=== PATIENT | female | born 1955 | race Caucasian/White ===

== ENCOUNTER 2016-08-19 17:17 | Emergency (ER) | payer OTHER ==
[2016-08-19] MEDS ORDERED: Zofran 4 MG/2 ML VIAL IV ONE (18:55)
--- NOTE | 2016-08-19 18:57 | ERPHSYRPT ---
- History of Present Illness Time Seen by Provider: 08/19/16 18:45 Source: patient Exam Limitations: clinical condition Patient Subjective Stated Complaint: HEADACHE FOR THREE DAYS. HX MIGRAINES. Triage Nursing Assessment: AMBULATED TO ROOM PER SELF WITHOUT DIFFICULTY. HOLDING FOREHEAD. SKIN W/D, COLOR NORMAL. Physician History: PATIENT WITH HISTORY OF MIGRAINES SINCE AGE 10 COMPLAINS OF HEADACHE OVER THE PAST 3 DAYS, DENIES FEVER, NECK STIFFNESS, BLURRED VISION, NAUSEA OR EMESIS. Timing/Duration: day(s) Quality: throbbing Head Pain Location: frontal Severity of Pain-Max: severe Severity of Pain-Current: severe Recent Head Trauma: frequent headaches Modifying Factors: Improves With: exposure to light Associated Symptoms: sensitive to light, other (EARACHES) Allergies/Adverse Reactions: hydromorphone HCl [From Dilaudid] Allergy (Severe, Verified 08/19/16 17:54) Vomiting morphine Allergy (Severe, Verified 08/19/16 17:54) Vomiting promethazine HCl [From Phenergan] Allergy (Severe, Verified 08/19/16 17:54) Lightheadedness Home Medications: Carvedilol 6.25 mg [Coreg 6.25 MG] 6.25 mg PO BID 09/27/15 [History] Divalproex Sodium [Depakote] 1,000 mg PO DAILY 09/27/15 [History] Duloxetine HCl [Cymbalta] 60 mg PO DAILY 08/19/16 [History] Ketorolac Tromethamine [Toradol] 10 mg PO Q8HPRN PRN 08/19/16 [History] Sumatriptan Succinate [Imitrex] 100 mg PO UD 08/19/16 [History] Hx Tetanus, Diphtheria Vaccination/Date Given: No Hx Influenza Vaccination/Date Given: Yes Hx Pneumococcal Vaccination/Date Given: No - Review of Systems Constitutional: No Fever, No Chills Eyes: No Symptoms Ears, Nose, & Throat: Ear Pain Respiratory: No Cough, No Dyspnea Cardiac: No Symptoms, No Chest Pain, No Edema, No Syncope Abdominal/Gastrointestinal: No Symptoms, No Abdominal Pain, No Nausea, No Vomiting, No Diarrhea Genitourinary Symptoms: No Dysuria Musculoskeletal: No Back Pain, No Neck Pain Skin: No Rash Neurological: Headache, No Dizziness, No Focal Weakness, No Sensory Changes Psychological: No Symptoms Endocrine: No Symptoms All Other Systems: Reviewed and Negative - Past Medical History Pertinent Past Medical History: Yes Neurological History: Migraines Cardiac History: Hypertension History: Other Psycho-Social History: Depression - Past Surgical History Past Surgical History: Yes Gastrointestinal: Cholecystectomy - Social History Smoking Status: Current every day smoker How long have you smoked: 20 Exposure to second hand smoke: Yes Drug Use: none Patient Lives Alone: No - Nursing Vital Signs Nursing Vital Signs: Initial Vital Signs Temperature 98.5 F Pulse Rate 66 Respiratory Rate 16 Blood Pressure [Right Arm] 144/70 Pain Intensity 3 - Physical Exam General Appearance: mild distress Eye Exam: PERRL/EOMI Ears, Nose, Throat Exam: normal ENT inspection, moist mucous membranes Neck Exam: normal inspection, supple, full range of motion, No meningismus Respiratory Exam: normal breath sounds, lungs clear Cardiovascular Exam: regular rate/rhythm, normal heart sounds Gastrointestinal/Abdominal Exam: soft, normal bowel sounds, No tenderness, No distention Back Exam: normal inspection, normal range of motion Mental Status Exam: alert, oriented x 3, 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 Exam: normal speech, PERRL, No facial droop Coordination/Gait Exam: normal cerebellar function Motor/Sensory Exam: no motor deficit, no sensory deficit DTR Exam: bicep (R): 2+, bicep (L): 2+, tricep (R): 2+, tricep (L): 2+, knee (R) : 2+, knee (L): 2+, ankle (R): 2+, ankle (L): 2+ Skin Exam: normal color, warm, dry, No rash SpO2 Interpretation: normal SpO2: 98 Oxygen Delivery: Room Air - CT Exams Head CT Interpretation: Tele-radiologist Report, No/Intracranial Hemorrhag Ordered Tests: Active Orders 24 hr Category Date Time Status HEAD WITHOUT CONTRAST [CT] Stat Exams 08/19/16 18:56 Taken Medication Summary Generic Name Dose Route Start Last Admin Trade Name Freq PRN Reason Stop Dose Admin Sodium Chloride 1,000 mls @ 200 mls/hr 08/19/16 19:00 08/19/16 19:46 Sodium Chloride 0.9% 1000 Ml IV 09/18/16 18:59 200 mls/hr .Q5H BRANDON Administration Discontinued Medications Generic Name Dose Route Start Last Admin Trade Name Freq PRN Reason Stop Dose Admin Fentanyl Citrate 100 mcg 08/19/16 19:20 08/19/16 19:57 Sublimaze 100 Mcg/2 Ml IV 08/19/16 19:21 100 mcg STAT ONE Administration Fentanyl Citrate Confirm 08/19/16 19:56 Sublimaze 100 Mcg/2 Ml Administered 08/19/16 19:57 Dose 100 mcg .ROUTE .STK-MED ONE Fentanyl Citrate 100 mcg 08/19/16 20:44 08/19/16 21:17 Sublimaze 100 Mcg/2 Ml IV 08/19/16 20:45 100 mcg STAT ONE Administration Fentanyl Citrate Confirm 08/19/16 21:04 Sublimaze 100 Mcg/2 Ml Administered 08/19/16 21:05 Dose 100 mcg .ROUTE .STK-MED ONE Ketorolac Tromethamine 20 mg 08/19/16 20:43 08/19/16 21:14 Toradol 30 Mg Injection IV 08/19/16 20:44 20 mg STAT ONE Administration Ketorolac Tromethamine Confirm 08/19/16 21:04 Toradol 30 Mg Injection Administered 08/19/16 21:05 Dose 30 mg .ROUTE .STK-MED ONE Ondansetron HCl 4 mg 08/19/16 18:55 08/19/16 19:47 Zofran 4 Mg/2 Ml Vial IV 08/19/16 18:56 4 mg STAT ONE Administration Ondansetron HCl Confirm 08/19/16 19:06 Zofran 4 Mg/2 Ml Vial Administered 08/19/16 19:07 Dose 4 mg .ROUTE .STK-MED ONE - Progress Progress: improved Progress Note: 08/19/16 19:27 PATIENT GIVEN IV NORMAL SALINE 200ML/HR, ZOFRAN 4MG, FENTANYL 0.1MG X 2 DOSES Counseled pt/family regarding: diagnosis, need for follow-up, rad results - Departure Time of Disposition: 21:45 Departure Disposition: Home Clinical Impression: CHRONIC CEPHALGIA Condition: Stable Critical Care Time: No Instructions: Headache Additional Instructions: CONTINUE ALL CURRENT MEDICATIONS DIRECTED. FOLLOWUP WITH YOUR NEUROLOGIST TOMORROW TO SCHEDULE APPOINTMENT.
[2016-08-19] MEDS ORDERED: Sodium Chloride 0.9% 1000 ML 1,000 ML IV SCH (19:00)
[2016-08-19] MEDS ORDERED: Zofran 4 MG/2 ML VIAL ONE (19:06)
[2016-08-19] MEDS ORDERED: Sodium Chloride 0.9% 1000 ML 1,000 ML ONE (19:06)
[2016-08-19] MEDS ORDERED: SUBLIMAZE 100 MCG/2 ML IV ONE ×2 (19:20→20:44)
[2016-08-19] MEDS ORDERED: SUBLIMAZE 100 MCG/2 ML ONE ×2 (19:56→21:04)
[2016-08-19] MEDS ORDERED: TORAdol 30 mg Injection IV ONE (20:43)
[2016-08-19] MEDS ORDERED: Sodium Chloride 0.9% 1000 ML 0 ML ONE (21:04)
[2016-08-19] MEDS ORDERED: TORAdol 30 mg Injection ONE (21:04)
[2016-08-19 21:34] VITALS: PULSE 66
[2016-08-19 22:03] VITALS: BP 139/74; O2SAT 96
--- NOTE | 2016-08-20 08:50 | XRAY ---
Indication: Headache. History of hypertension and migraines. Multiple contiguous axial images obtained through the head without contrast. Comparison: None. Normal appearing brain parenchyma, ventricles, and bony calvarium. Mild mucosal thickening of both ethmoid and left sphenoid sinuses. Mastoid air cells are pneumatized and clear. Impression: Normal CT head without contrast exam. Incidental paranasal sinus disease. Comment: Preliminary interpretation was made by [facility]. No discrepancy. CTDI 68.15
== END 2016-08-19 22:04 | disposition home or self-care (01) ==
LOC: ED 17:17
DX: R51 Headache (principal); G89.29 Other chronic pain; Z79.899 Other long term (current) drug therapy
CPT/HCPCS: 70450; 96360; 96361; 96374; 96375; 96376; 99284; J1885; J2405; J3010

== ENCOUNTER 2016-08-30 20:20 | Observation (INO) | payer OTHER ==
[2016-08-30] MEDS ORDERED: BABY ASPIRIN 81 MG CHEW PO ONE (20:42)
[2016-08-30] MEDS ORDERED: NITRO-BID 2% UD PACKETS TOP ONE (20:42)
[2016-08-30] MEDS ORDERED: ATARAX 25 MG PO ONE (20:43)
[2016-08-30] MEDS ORDERED: Sodium Chloride 0.9% 1000 ML 1,000 ML IV SCH (20:45)
[2016-08-30] MEDS ORDERED: BABY ASPIRIN 81 MG CHEW ONE (20:47)
[2016-08-30] MEDS ORDERED: Sodium Chloride 0.9% 1000 ML 1,000 ML ONE (20:48)
[2016-08-30] MEDS ORDERED: NITRO-BID 2% UD PACKETS ONE (20:48)
[2016-08-30] MEDS ORDERED: ATARAX 25 MG ONE (20:50)
[2016-08-30 21:03] LABS: Mean Corpuscular Hemoglobin 28.4 pg (26-32); Mean Platelet Volume 11.4 fl (6-9.5); Platelet Count 184 K/mm3 (150-450); Red Blood Count 4.72 M/mm3 (4.1-5.4); Red Cell Distribution Width 14.4 % (11.5-14.0); White Blood Count 5.8 K/mm3 (4.0-10.5)
[2016-08-30 21:24] LABS: ALBUMIN 3.4 g/dL (3.4-5.0); ALKALINE PHOSPHATASE 75 U/L (46-116); ANION GAP 14.8 MEQ/L (5-15); BILIRUBIN,TOTAL 0.5 mg/dL (0.2-1.0); BLOOD UREA NITROGEN 8 mg/dL (9-20); CHLORIDE 104 mEq/L (98-107); Carbon Dioxide 25.4 mEq/L (21-32); Glucose 99 MG/DL (70-110); Potassium 3.9 mEq/L (3.5-5.1); SGOT/AST 10 U/L (15-37); SGPT/ALT 13 U/L (12-78); SODIUM 140 mEq/L (136-145); Total Protein 6.9 gm/dL (6.4-8.2)
--- NOTE | 2016-08-30 21:34 | ERPHSYRPT ---
- History of Present Illness Time Seen by Provider: 08/30/16 20:38 Historian: patient, family Patient Subjective Stated Complaint: Pt sts left sided chest pain x 1 month, sts pain in between shoulder blades with cold sweats and nausea intermittently x [address] Boston, has not seen him for his. Denies cardiac hx. Sts pain right now 4/10, sts at times pain 6/10. Sts pain is sharp in nature. Sts intermittent radiation to arms and back. Sts pain does not change with movement, deep inspiration. Triage Nursing Assessment: Pt alert, oriented, answers all questions appropriately. Skin p/w/d, resps non-labored. Pt ambulatory without difficulty, steady gait noted. Lung sounds CTA bilat, non-labored. ABD SNT x 4 quadrants, + bowel sounds noted. Monitor - sinus rhythm. Physician History: CC: chest pain Hx: 61 y/o patient of Dr Boston. She has no hx of heart disease but does have HTN. She reports chest pain, constant and precordial for the past month. Episodes where pain is in neck and left arm and associated with sweating and nausea. She told her daughter today and came to ER. Pain has been worse. Has not noticed an exertional component. Not short of breath. No cough, fever, or chills. Timing/Duration: week(s) (few), constant, worse (intermittently) Prior Chest Pain/Cardiac Workup: no prior chest pain, no prior cardiac workup Nitro Today/Relief: no nitro taken today Aspirin Treatment Today: 81 mg x 1, provided at home Allergies/Adverse Reactions: promethazine HCl [From Phenergan] Allergy (Severe, Verified 08/30/16 20:34) Lightheadedness hydromorphone HCl [From Dilaudid] Adverse Reaction (Severe, Verified 08/30/16 20 :34) Vomiting morphine Adverse Reaction (Severe, Verified 08/30/16 20:34) Vomiting Home Medications: Carvedilol 6.25 mg [Coreg 6.25 MG] 6.25 mg PO BID 09/27/15 [History] Divalproex Sodium [Depakote] 1,000 mg PO DAILY 09/27/15 [History] Duloxetine HCl [Cymbalta] 60 mg PO DAILY 08/19/16 [History] Ketorolac Tromethamine [Toradol] 10 mg PO Q8HPRN PRN 08/19/16 [History] Sumatriptan Succinate [Imitrex] 100 mg PO UD 08/19/16 [History] Aspirin 81 gm Chew [Baby Aspirin 81 mg Chew] 81 mg PO PRN 08/30/16 [ History] Cyclobenzaprine HCl [Flexeril] 5 mg PO 08/30/16 [History] Fluticasone Propionate [Flonase Allergy Relief] 15.8 ml NS DAILY 08/30/16 [ History] Pravastatin Sodium 0 mg PO 08/30/16 [History] Hx Tetanus, Diphtheria Vaccination/Date Given: No Hx Influenza Vaccination/Date Given: Yes Hx Pneumococcal Vaccination/Date Given: No Immunizations Up to Date: Yes - Review of Systems Constitutional: Malaise, No Fever, No Chills Eyes: No Symptoms Ears, Nose, & Throat: No Symptoms Respiratory: No Cough, No Dyspnea Cardiac: Chest Pain, No Edema, No Palpitations Abdominal/Gastrointestinal: Nausea (intermittent), No Abdominal Pain Genitourinary Symptoms: No Symptoms Musculoskeletal: No Symptoms Skin: No Symptoms Neurological: No Symptoms Psychological: Anxiety (with some panic attacks which may contributing) All Other Systems: Reviewed and Negative - Past Medical History Pertinent Past Medical History: Yes Neurological History: Migraines Cardiac History: High Cholesterol, Hypertension History: Other Psycho-Social History: Depression, Panic Disorder Other Medical History: seasonal allergies - Past Surgical History Past Surgical History: Yes Gastrointestinal: Cholecystectomy Other Surgical History: hyst, rotator cuff, kidney stones - stents (Dr. 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) - Nursing Vital Signs Temperature: 97.7 F Temperature Source: Oral Pulse Rate: 60 Respiratory Rate: 17 Pain Intensity: 2 - Physical Exam General Appearance: alert Eye Exam: PERRL/EOMI Ears, Nose, Throat Exam: normal ENT inspection, moist mucous membranes Neck Exam: normal inspection, non-tender, supple Respiratory Exam: normal breath sounds, lungs clear Cardiovascular Exam: regular rate/rhythm, No murmur, No friction rub Gastrointestinal/Abdomen Exam: soft, No tenderness, No distention Extremity Exam: normal inspection, normal range of motion, No calf tenderness, No pedal edema Neurologic Exam: alert, oriented x 3, cooperative, sensation nml, No motor deficits Skin Exam: warm, dry, No rash SpO2 Interpretation: normal SpO2: 97 Oxygen Delivery: Room Air - Course Nursing assessment & vital signs reviewed: Yes EKG Interpreted by Me: RATE (65), Sinus Rhythm, NORMAL AXIS, NORMAL INTERVALS ( QTc 418), NORMAL QRS, NORMAL ST-T - Radiology Exams cxr X-ray Interpretation: Reviewed by me, Negative Ordered Tests: Active Orders 24 hr Category Date Time Status 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 Care 08/30/16 20:42 Active EKG-ER Only STAT Care 08/30/16 20:42 Active IV Insertion STAT Care 08/30/16 20:42 Active Pulse Oximetry (ED) STAT Care 08/30/16 20:42 Active CHEST 1 VIEW (PORTABLE) Stat Exams 08/30/16 20:43 Taken CBC W DIFF Stat Lab 08/30/16 20:40 Completed CMP Stat Lab 08/30/16 20:40 Completed Manual Differential NC Stat Lab 08/30/16 20:40 Completed TROPONIN Q3H Lab 08/30/16 20:40 Completed TROPONIN Q3H Lab 08/30/16 23:45 Ordered TROPONIN Q3H Lab 08/31/16 02:45 Ordered TROPONIN Q3H Lab 08/31/16 05:45 Ordered TROPONIN Q3H Lab 08/31/16 08:45 Ordered VALPROIC ACID (DEPAKOTE) Stat Lab 08/30/16 20:50 Received Medication Summary Generic Name Dose Route Start Last Admin Trade Name Freq PRN Reason Stop Dose Admin Sodium Chloride 1,000 mls @ 50 mls/hr 08/30/16 20:45 08/30/16 20:52 Sodium Chloride 0.9% 1000 Ml IV 09/29/16 20:44 50 mls/hr .Q20H BRANDON Administration Discontinued Medications Generic Name Dose Route Start Last Admin Trade Name Freq PRN Reason Stop Dose Admin Aspirin 162 mg 08/30/16 20:42 08/30/16 20:52 Baby Aspirin 81 Mg Chew PO 08/30/16 20:43 162 mg STAT ONE Administration Aspirin Confirm 08/30/16 20:47 Baby Aspirin 81 Mg Chew Administered 08/30/16 20:48 Dose 162 mg .ROUTE .STK-MED ONE Famotidine 20 mg 08/30/16 21:41 Pepcid 20 Mg Vial IV 08/30/16 21:42 STAT ONE Hydroxyzine HCl 50 mg 08/30/16 20:43 08/30/16 20:53 Atarax 25 Mg PO 08/30/16 20:44 50 mg STAT ONE Administration Hydroxyzine HCl Confirm 08/30/16 20:50 Atarax 25 Mg Administered 08/30/16 20:51 Dose 50 mg .ROUTE .STK-MED ONE Nitroglycerin 1 gm 08/30/16 20:42 08/30/16 20:53 Nitro-Bid 2% Ud Packets TOP 08/30/16 20:43 1 gm STAT ONE Administration Nitroglycerin Confirm 08/30/16 20:48 Nitro-Bid 2% Ud Packets Administered 08/30/16 20:49 Dose 1 gm .ROUTE .STK-MED ONE Lab/Rad Data: Laboratory Result Diagrams 08/30/16 20:40 08/30/16 20:40 Laboratory Results 08/30/16 08/30/16 08/30/16 Range/Units 20:40 20:40 20:40 WBC 5.8 (4.0-10.5) K/mm3 RBC 4.72 (4.1-5.4) M/mm3 Hgb 13.4 (12.0-16.0) gm/dl Hct 40.6 (35-47) % MCV 86.0 (78-100) fl MCH 28.4 (26-32) pg MCHC 33.0 (32-36) g/dl RDW 14.4 H (11.5-14.0) % Plt Count 184 (150-450) K/mm3 MPV 11.4 H (6-9.5) fl Sodium 140 (136-145) mEq/L Potassium 3.9 (3.5-5.1) mEq/L Chloride 104 (98-107) mEq/L Carbon Dioxide 25.4 (21-32) mEq/L Anion Gap 14.8 (5-15) MEQ/L BUN 8 L (9-20) mg/dL Creatinine 0.67 (0.55-1.30) mg/dl Estimated GFR > 60 ML/MIN Glucose 99 (70-110) MG/DL Calcium 8.5 (8.5-10.1) mg/dL Total Bilirubin 0.5 (0.2-1.0) mg/dL AST 10 L (15-37) U/L ALT 13 (12-78) U/L Alkaline Phosphatase 75 (46-116) U/L Troponin I < 0.017 (0.000-0.056) ng/ml Serum Total Protein 6.9 (6.4-8.2) gm/dL Albumin 3.4 (3.4-5.0) g/dL - Progress Progress Note: 08/30/16 21:45 NTG has helped pain some but pain is still present. EKG and troponin neg. Called Dr Boston who will place in chest pain obs. Discussed with .: Luz Marina Will see patient in: hospital (observation) Counseled pt/family regarding: lab results, diagnosis, need for follow-up, rad results - Departure Time of Disposition: 21:46 Departure Disposition: Observation Clinical Impression: Chest pain, rule out acute myocardial infarction Condition: Stable Critical Care Time: No Referrals: SHAHZAD BOSTON MD [Primary Care Provider] -
[2016-08-30] MEDS ORDERED: Pepcid 20 MG VIAL IV ONE ×2 (21:41→21:54)
[2016-08-30] MEDS ORDERED: Zofran 4 MG/2 ML VIAL IV PRN (22:16)
[2016-08-30] MEDS ORDERED: MAALOX ES 30 ML UNIT DOSE PO PRN (22:16)
[2016-08-30] MEDS ORDERED: Senokot-S Tablet PO PRN (22:16)
[2016-08-30] MEDS ORDERED: MILK OF MAGNESIA 30 ML PO PRN (22:16)
[2016-08-30] MEDS ORDERED: Sodium Chloride 0.9% 500 ML 500 ML IV SCH (22:16)
[2016-08-30] MEDS ORDERED: TYLENOL 325 MG PO PRN (22:16)
[2016-08-30 23:09] LABS: Eosinophil 2 % (0.00-3.0); Platelet Estimate NORMAL (NORMAL); Total Cells Counted 100
[2016-08-31] MEDS: NITRO-BID 2% UD PACKETS TOP SCH ×2 (00:29→05:42)
[2016-08-31] MEDS: Pepcid 20 MG PO SCH ×2 (00:30→09:01)
--- NOTE | 2016-08-31 08:38 | XRAY ---
Indication: Chest pain. Comparison: April 08, 2011. Portable chest less inflated today with subtle bibasilar opacities probably atelectasis. Underlying infiltrate not excluded in the right clinical setting. Remaining heart, lungs, and bony thorax normal.
[2016-08-31] MEDS ORDERED: MOTRIN 200 MG PO PRN (09:26)
[2016-08-31] MEDS ORDERED: NON-FORMULARY ITEM (Cyclobenzaprine Hcl [Flexeril] 10 MG) PO PRN (09:26)
[2016-08-31] MEDS ORDERED: TORAdol 10 MG TABLET PO PRN (09:26)
[2016-08-31] MEDS ORDERED: MOTRIN 400 MG PO PRN (09:29)
[2016-08-31] MEDS ORDERED: Cyclobenzaprine 10 MG PO PRN (09:30)
[2016-08-31] MEDS ORDERED: NON-FORMULARY ITEM (Sumatriptan Succinate [Imitrex] 100 MG) PO SCH (09:30)
[2016-08-31] MEDS ORDERED: MEDICATION INTERVENTION MC PRN (09:35)
[2016-08-31] MEDS ORDERED: Cymbalta 30 MG Capsule PO SCH (10:00)
[2016-08-31] MEDS ORDERED: Ecotrin 325 MG PO SCH (10:00)
[2016-08-31] MEDS ORDERED: [UNRECOGNIZED DRUG - REMARK] NS SCH (10:00)
[2016-08-31] MEDS ORDERED: Coreg 6.25 MG PO SCH (10:00)
[2016-08-31] MEDS ORDERED: BABY ASPIRIN 81 MG CHEW PO SCH (10:00)
[2016-08-31] MEDS ORDERED: Flonase NASAL NS SCH (10:00)
[2016-08-31] MEDS ORDERED: NON-FORMULARY ITEM (Pravastatin Sodium [Pravastatin Sodium] 20 MG) PO SCH (10:00)
[2016-08-31] MEDS ORDERED: NON-FORMULARY ITEM (Duloxetine Hcl [Cymbalta] 60 MG) PO SCH (10:00)
[2016-08-31] MEDS: ECOTRIN 81 MG PO SCH (10:49)
[2016-08-31 11:15] VITALS: BP 111/56; PULSE 62; O2SAT 92
--- NOTE | 2016-08-31 11:41 | PCM.SSS ---
History of Present Illness - Chief Complaint Chief Complaint: chest pain for 1-2 days History of Present Illness: is a 61 year old female.patient She has no hx of heart disease but does have HTN. She reports chest pain, constant and precordial for the past month. Episodes where pain is in neck and left arm and associated with sweating and nausea. She told her daughter today and came to ER. Pain has been worse. Has not noticed an exertional component. Not short of breath. No cough, fever, or chills. - Review of Systems Constitutional: No Fever, No Chills Eyes: No Symptoms Ears, Nose, & Throat: No Symptoms Respiratory: No Cough, No Short Of Breath Cardiac: Chest Pain, No Edema, No Syncope Abdominal/Gastrointestinal: No Abdominal Pain, No Nausea, No Vomiting, No Diarrhea Genitourinary Symptoms: No Dysuria Musculoskeletal: No Back Pain, No Neck Pain Skin: No Rash Neurological: No Dizziness, No Focal Weakness, No Sensory Changes Psychological: No Symptoms Endocrine: No Symptoms Hematologic/Lymphatic: No Symptoms Immunological/Allergic: No Symptoms Medications & Allergies Home Medications: Home Medication List Carvedilol 6.25 mg [Coreg 6.25 MG] 6.25 mg PO DAILY 09/27/15 [History Confirmed 08/30/16] Divalproex Sodium [Depakote] 1,000 mg PO DAILY 09/27/15 [History Confirmed 08/30] Duloxetine HCl [Cymbalta] 60 mg PO DAILY 08/19/16 [History Confirmed 08/30/16] Ketorolac Tromethamine [Toradol] 10 mg PO Q8HPRN PRN 08/19/16 [History Confirmed 08/30/16] Sumatriptan Succinate [Imitrex] 100 mg PO UD 08/19/16 [History Confirmed ] Aspirin 81 gm Chew [Baby Aspirin 81 mg Chew] 81 mg PO DAILY 08/30/16 [ History Confirmed 08/30/16] Cyclobenzaprine HCl [Flexeril] 10 mg PO TID PRN PRN 08/30/16 [History Confirmed 08/30/16] Fluticasone Propionate [Flonase Allergy Relief] 15.8 ml NS DAILY 08/30/16 [ History Confirmed 08/30/16] Ibuprofen 200 mg [Motrin 200 mg] 800 mg PO BID PRN 08/30/16 [History Confirmed 08/30/16] Pravastatin Sodium 20 mg PO DAILY 08/30/16 [History Confirmed 08/30/16] Allergies/Adverse Reactions: Allergies Allergy/AdvReac Type Severity Reaction Status Date / Time promethazine HCl Allergy Severe Lightheaded Verified 08/30/16 20:34 [From Phenergan] ness hydromorphone HCl AdvReac Severe Vomiting Verified 08/30/16 20:34 [From Dilaudid] morphine AdvReac Severe Vomiting Verified 08/30/16 20:34 - Past Medical History Past Medical History: Yes Neurological History: Migraines Cardiac History: High Cholesterol, Hypertension History: Other Pyscho-Social History: Depression, Panic Disorder Comment: seasonal allergies, kidney stones - Female History Are you now?: No - Past Surgical History Past Surgical History: Yes GI Surgical History: Cholecystectomy Genitourinary Surgical Hx: Other Musculskeletal Surgical Hx: Other Female Surgical History: Hysterectomy Other Surgical History: rotator cuff, kidney stones - stents (Dr. Rush) - Social History Smoking Status: Current every day smoker How long have you smoked: 30 yrs Exposure to second hand smoke: Yes Alcohol: None Drug Use: none - Physical Exam Vital Signs: Vital Signs - 24 hr Temp Pulse Resp BP BP Pulse Ox 08/31/16 11:15 98.0 F 62 18 111/56 92 L 08/31/16 08:00 96 08/31/16 07:23 98.0 F 66 17 123/56 96 08/31/16 04:00 98.0 F 59 L 16 100/55 91 L 08/31/16 00:00 97.9 F 64 18 117/58 94 L 08/30/16 23:11 98.1 F 60 18 133/63 93 L 08/30/16 22:01 58 L 20 146/78 97 08/30/16 21:46 97.7 F 60 17 97 08/30/16 21:23 60 17 137/52 97 08/30/16 20:47 96 08/30/16 20:35 97.7 F 67 16 127/68 97 General Appearance: no apparent distress, alert Neurologic Exam: alert, oriented x 3, cooperative, normal mood/affect, nml cerebellar function, nml station & gait, sensation nml, No motor deficits Eye Exam: PERRL/EOMI, eyes nml inspection Ears, Nose, Throat Exam: normal ENT inspection, TMs normal, pharynx normal, moist mucous membranes Neck Exam: normal inspection, non-tender, supple, full range of motion Respiratory Exam: normal breath sounds, lungs clear, No respiratory distress Cardiovascular Exam: regular rate/rhythm, normal heart sounds, normal peripheral pulses Gastrointestinal/Abdomen Exam: soft, normal bowel sounds, No tenderness, No mass Back Exam: normal inspection, normal range of motion, No CVA tenderness, No vertebral tenderness Extremity Exam: normal inspection, normal range of motion, pelvis stable Skin Exam: normal color, warm, dry, No rash Lymphatic Exam: No adenopathy Results - Labs Lab/Micro Results: Lab Results-Last 24 Hours 08/30/16 08/31/16 08/31/16 Range/Units 23:45 02:50 05:20 Troponin I < 0.017 < 0.017 < 0.017 (0.000-0.056) ng/ml Triglycerides (30-200) mg/dL Cholesterol (100-200) mg/dL LDL Cholesterol (5-99) mg/dL HDL Cholesterol (35-60) mg/dL Heart Disease Risk Ratio 08/31/16 08/31/16 Range/Units 05:20 08:48 Troponin I < 0.017 (0.000-0.056) ng/ml Triglycerides 178 (30-200) mg/dL Cholesterol 179 (100-200) mg/dL LDL Cholesterol 112 H (5-99) mg/dL HDL Cholesterol 29 L (35-60) mg/dL Heart Disease Risk Ratio 6.2 - Other Procedures and Tests Respiratory Therapy 09/01/16 05:00 EKG ROUTINE 09/02/16 05:00 EKG ROUTINE 09/03/16 05:00 EKG ROUTINE Assessment/Plan (1) Chest pain, rule out acute myocardial infarction Current Visit: Yes Status: Acute Assessment & Plan: Troponins are negative, will schedule appointment with cardiology service Dr Mary Peacock as out patient. Code(s): R07.9 - CHEST PAIN, UNSPECIFIED (2) HTN (hypertension) Current Visit: Yes Status: Chronic Qualifiers: Hypertension type: essential hypertension Qualified Code(s): I10 - Essential (primary) hypertension Code(s): I10 - ESSENTIAL (PRIMARY) HYPERTENSION Hospital Summary - Hospital Course Hospital Course: Chief Complaint Diagnosis chest pain rule out PR Allergies Allergy/AdvReac Type Severity Reaction Status Date / Time promethazine HCl Allergy Severe Lightheaded Verified 08/30/16 20:34 [From Phenergan] ness hydromorphone HCl AdvReac Severe Vomiting Verified 08/30/16 20:34 [From Dilaudid] morphine AdvReac Severe Vomiting Verified 08/30/16 20:34 Vital Signs (Last 24 hours) Temp Pulse Resp BP BP Pulse Ox 08/31/16 11:15 98.0 F 62 18 111/56 92 L 08/31/16 08:00 96 08/31/16 07:23 98.0 F 66 17 123/56 96 08/31/16 04:00 98.0 F 59 L 16 100/55 91 L 08/31/16 00:00 97.9 F 64 18 117/58 94 L 08/30/16 23:11 98.1 F 60 18 133/63 93 L 08/30/16 22:01 58 L 20 146/78 97 08/30/16 21:46 97.7 F 60 17 97 08/30/16 21:23 60 17 137/52 97 08/30/16 20:47 96 08/30/16 20:35 97.7 F 67 16 127/68 97 Home Medications Medication Instructions Recorded Confirmed Last Taken Type Aspirin 81 gm Chew [Baby 81 mg PO DAILY 08/30/16 08/30/16 08/30/16 History Aspirin 81 mg Chew] Cyclobenzaprine HCl [Flexeril] 10 mg PO TID PRN PRN 08/30/16 08/30/16 08/18/16 History Fluticasone Propionate [Flonase 15.8 ml NS DAILY 08/30/16 08/30/16 08/30/16 History Allergy Relief] Ibuprofen 200 mg [Motrin 200 800 mg PO BID PRN 08/30/16 08/30/16 08/28/16 History mg] Pravastatin Sodium 20 mg PO DAILY 08/30/16 08/30/16 08/30/16 History Current Medications Generic Name Dose Route Start Last Admin Trade Name Freq PRN Reason Stop Dose Admin Acetaminophen 650 mg 08/30/16 22:16 08/31/16 09:18 Tylenol 325 Mg PO 09/29/16 22:15 650 mg Q4H PRN PRN Administration PAIN AND/OR FEVER Al Hydrox/Mg Hydrox/Simethicone 30 ml 08/30/16 22:16 Maalox Es 30 Ml Unit Dose PO 09/29/16 22:15 Q4H PRN PRN INDIGESTION Aspirin 81 mg 08/31/16 10:00 08/31/16 10:49 Ecotrin 81 Mg PO 09/30/16 09:59 81 mg DAILY BRANDON Administration Carvedilol 6.25 mg 08/31/16 10:00 08/31/16 10:49 Coreg 6.25 Mg PO 09/30/16 09:59 6.25 mg DAILY BRANDON Administration Cyclobenzaprine HCl 10 mg 08/31/16 09:30 Cyclobenzaprine 10 Mg PO 09/30/16 09:29 TID PRN PRN HEADACHE Divalproex Sodium 1,000 mg 08/31/16 10:00 08/31/16 10:[address] 250 Mg Tab PO 09/30/16 09:59 1,000 mg DAILY BRANDON Administration Duloxetine HCl 60 mg 08/31/16 10:00 08/31/16 10:48 Cymbalta 30 Mg Capsule PO 09/30/16 09:59 60 mg DAILY BRANDON Administration Famotidine 20 mg 08/30/16 22:16 08/31/16 09:01 Pepcid 20 Mg PO 09/29/16 22:15 20 mg BID BRANDON Administration Fluticasone Propionate 0 gm 08/31/16 10:00 08/31/16 10:50 Flonase Nasal NS 09/30/16 09:59 2 gm DAILY BRANDON Administration Sodium Chloride 500 mls @ 20 mls/hr 08/30/16 22:16 08/30/16 22:30 Sodium Chloride 0.9% 500 Ml IV 09/29/16 22:15 20 mls/hr .Q24H BRANDON Administration Ibuprofen 800 mg 08/31/16 09:29 Motrin 400 Mg PO 09/30/16 09:28 BID PRN PRN migraines Ketorolac Tromethamine 10 mg 08/31/16 09:26 Toradol 10 Mg Tablet PO 09/05/16 09:25 Q8HPRN PRN PAIN Magnesium Hydroxide 30 - 60 ml 08/30/16 22:16 Milk Of Magnesia 30 Ml PO 09/29/16 22:15 QDP PRN CONSTIPATION Nitroglycerin 1 gm 08/30/16 22:16 08/31/16 05:42 Nitro-Bid 2% Ud Packets TOP 09/29/16 22:15 1 gm Q8HT BRANDON Administration Ondansetron HCl 4 mg 08/30/16 22:16 Zofran 4 Mg/2 Ml Vial IV 09/29/16 22:15 Q4H PRN PRN NAUSEA/VOMITING Senna/Docusate Sodium 2 udtab 08/30/16 22:16 Senokot-S Tablet PO 09/29/16 22:15 BID PRN PRN CONSTIPATION Simvastatin 20 mg 08/31/16 22:00 Zocor 20mg PO 09/30/16 21:59 HS [facility] Discontinued Medications Generic Name Dose Route Start Last Admin Trade Name Freq PRN Reason Stop Dose Admin Aspirin 162 mg 08/30/16 20:42 08/30/16 20:52 Baby Aspirin 81 Mg Chew PO 08/30/16 20:43 162 mg STAT ONE Administration Aspirin Confirm 08/30/16 20:47 Baby Aspirin 81 Mg Chew Administered 08/30/16 20:48 Dose 162 mg .ROUTE .STK-MED ONE Aspirin 325 mg 08/31/16 10:00 Ecotrin 325 Mg PO 09/30/16 09:59 DAILY [facility] Famotidine 20 mg 08/30/16 21:41 08/30/16 21:55 Pepcid 20 Mg Vial IV 08/30/16 21:42 20 mg STAT ONE Administration Famotidine Confirm 08/30/16 21:54 Pepcid 20 Mg Vial Administered 08/30/16 21:55 Dose 20 mg IV .STK-MED ONE Hydroxyzine HCl 50 mg 08/30/16 20:43 08/30/16 20:53 Atarax 25 Mg PO 08/30/16 20:44 50 mg STAT ONE Administration Hydroxyzine HCl Confirm 08/30/16 20:50 Atarax 25 Mg Administered 08/30/16 20:51 Dose 50 mg .ROUTE .STK-MED ONE Sodium Chloride 1,000 mls @ 50 mls/hr 08/30/16 20:45 08/30/16 20:52 Sodium Chloride 0.9% 1000 Ml IV 09/29/16 20:44 50 mls/hr .Q20H BRANDON Administration Sodium Chloride Confirm 08/30/16 20:48 Sodium Chloride 0.9% 1000 Ml Administered 08/30/16 20:49 Dose 1,000 mls @ ud .ROUTE .STK-MED ONE Nitroglycerin 1 gm 08/30/16 20:42 08/30/16 20:53 Nitro-Bid 2% Ud Packets TOP 08/30/16 20:43 1 gm STAT ONE Administration Nitroglycerin Confirm 08/30/16 20:48 Nitro-Bid 2% Ud Packets Administered 08/30/16 20:49 Dose 1 gm .ROUTE .STK-MED ONE Intake & Output (Last 24 hours) 08/28/16 08/29/16 08/30/16 08/31/16 11:59 11:59 11:59 11:59 Intake Total 418 Output Total 325 Balance 93 Weight 97.522 kg Laboratory Results (Last 24 hours) 08/31/16 08/31/16 08/31/16 08:48 05:20 05:20 WBC RBC Hgb Hct MCV MCH MCHC RDW Plt Count MPV Segmented Neutrophils Lymphocytes (Manual) Monocytes (Manual) Eosinophils (Manual) Differential Comment Platelet Estimate Sodium Potassium Chloride Carbon Dioxide Anion Gap BUN Creatinine Estimated GFR Glucose Calcium Total Bilirubin AST ALT Alkaline Phosphatase Troponin I < 0.017 < 0.017 Serum Total Protein Albumin Triglycerides 178 Cholesterol 179 LDL Cholesterol 112 H HDL Cholesterol 29 L Heart Disease Risk Ratio 6.2 Valproic Acid 08/31/16 08/30/16 08/30/16 02:50 23:45 20:50 WBC RBC Hgb Hct MCV MCH MCHC RDW Plt Count MPV Segmented Neutrophils Lymphocytes (Manual) Monocytes (Manual) Eosinophils (Manual) Differential Comment Platelet Estimate Sodium Potassium Chloride Carbon Dioxide Anion Gap BUN Creatinine Estimated GFR Glucose Calcium Total Bilirubin AST ALT Alkaline Phosphatase Troponin I < 0.017 < 0.017 Serum Total Protein Albumin Triglycerides Cholesterol LDL Cholesterol HDL Cholesterol Heart Disease Risk Ratio Valproic Acid 82.4 08/30/16 08/30/16 08/30/16 20:40 20:40 20:40 WBC 5.8 RBC 4.72 Hgb 13.4 Hct 40.6 MCV 86.0 MCH 28.4 MCHC 33.0 RDW 14.4 H Plt Count 184 MPV 11.4 H Segmented Neutrophils 42 Lymphocytes (Manual) 49 H Monocytes (Manual) 7 Eosinophils (Manual) 2 Differential Comment NORMAL Platelet Estimate NORMAL Sodium 140 Potassium 3.9 Chloride 104 Carbon Dioxide 25.4 Anion Gap 14.8 BUN 8 L Creatinine 0.67 Estimated GFR > 60 Glucose 99 Calcium 8.5 Total Bilirubin 0.5 AST 10 L ALT 13 Alkaline Phosphatase 75 Troponin I < 0.017 Serum Total Protein 6.9 Albumin 3.4 Triglycerides Cholesterol LDL Cholesterol HDL Cholesterol Heart Disease Risk Ratio Valproic Acid Orders (Last 24 hours) Category Date Time Status Bedrest with BRP/BSC ROUTINE Activity 08/30/16 22:16 Active Admission/Status Order ROUTINE Care 08/30/16 22:16 Active Call Admit Doctor for Orders ROUTINE Care 08/30/16 22:16 Active Vp Publisher Development STAT Care 08/30/16 20:42 Completed Code Status Order ROUTINE Care 08/30/16 22:16 Active EKG-ER Only STAT Care 08/30/16 20:42 Completed IV Care Q6H Care 08/30/16 22:16 Active IV Insertion STAT Care 08/30/16 20:42 Completed Implement Chest Pain Pathway ROUTINE Care 08/30/16 22:16 Active Pulse Oximetry (ED) STAT Care 08/30/16 20:42 Completed Taco Delgado, Apply ROUTINE Care 08/30/16 22:16 Active Telemetry ROUTINE Care 08/30/16 22:16 Active Vital Signs Q4H Care 08/30/16 22:16 Active Weight,Daily 0600 Care 08/30/16 22:16 Active CHEST 1 VIEW (PORTABLE) Stat Exams 08/30/16 20:43 Completed CBC W DIFF Stat Lab 08/30/16 20:40 Completed CMP Stat Lab 08/30/16 20:40 Completed LIPID PROFILE AM.LAB Lab 08/31/16 05:20 Completed Manual Differential NC Stat Lab 08/30/16 20:40 Completed TROPONIN Q3H Lab 08/30/16 20:40 Completed TROPONIN Q3H Lab 08/30/16 23:45 Completed TROPONIN Q3H Lab 08/31/16 02:50 Completed TROPONIN Q3H Lab 08/31/16 05:20 Completed TROPONIN Q3H Lab 08/31/16 08:48 Completed VALPROIC ACID (DEPAKOTE) Stat Lab 08/30/16 20:50 Completed Acetaminophen 325 mg [Tylenol 325 mg] Med 08/30/16 22:16 Active 650 mg PO Q4H PRN PRN Aspirin 81 gm Chew [Baby Aspirin 81 mg Chew] Med 08/30/16 20:47 Discontinued 162 mg .ROUTE .STK-MED ONE Aspirin 81 gm Chew [Baby Aspirin 81 mg Chew] Med 08/30/16 20:42 Discontinued 162 mg PO STAT ONE Aspirin EC 325 mg [Ecotrin 325 MG] Med 08/31/16 10:00 Discontinued 325 mg PO DAILY Aspirin EC 81 mg [Ecotrin 81 mg] Med 08/31/16 10:00 Active 81 mg PO DAILY Carvedilol 6.25 mg [Coreg 6.25 MG] Med 08/31/16 10:00 Active 6.25 mg PO DAILY Cyclobenzaprine HCl 10 mg [Cyclobenzaprine 10 MG] Med 08/31/16 09:30 Active 10 mg PO TID PRN PRN Divalproex Sodium 250 mg [Divalproex DR 250 mg Tab] Med 08/31/16 10:00 Active 1,000 mg PO DAILY Duloxetine HCl 30 mg [Cymbalta 30 MG Capsule] Med 08/31/16 10:00 Active 60 mg PO DAILY Famotidine 20 mg Vial [Pepcid 20 MG VIAL] Med 08/30/16 21:54 Discontinued 20 mg IV .STK-MED ONE Famotidine 20 mg Vial [Pepcid 20 MG VIAL] Med 08/30/16 21:41 Discontinued 20 mg IV STAT ONE Famotidine 20 mg [Pepcid 20 MG] Med 08/30/16 22:16 Active 20 mg PO BID Fluticasone Propionate [Flonase NASAL] Med 08/31/16 10:00 Active 0 gm NS DAILY Hydroxyzine HCl 25 mg [Atarax 25 mg] Med 08/30/16 20:50 Discontinued 50 mg .ROUTE .STK-MED ONE Hydroxyzine HCl 25 mg [Atarax 25 mg] Med 08/30/16 20:43 Discontinued 50 mg PO STAT ONE Ibuprofen 400 mg [Motrin 400 mg] Med 08/31/16 09:29 Active 800 mg PO BID PRN PRN Ketorolac Trometh 10 mg Tab [TORAdol 10 MG TABLET] Med 08/31/16 09:26 Active 10 mg PO Q8HPRN PRN Mag Hydrox/Al Hydrox/Simeth [Maalox Es 30 ml Unit Med 08/30/16 22:16 Active Dose] 30 ml PO Q4H PRN PRN Magnesium Hydroxide 30 ml [Milk of Magnesia 30 ml Med 08/30/16 22:16 Active ] 30 - 60 ml PO QDP PRN Medication Intervention Med 08/31/16 09:35 Active 0 each MC PRN PRN NaCl 0.9% 1000 ml [Sodium Chloride 0.9% 1000 ML] 1,000 Med 08/30/16 20:45 Discontinued ml IV 50 mls/hr NaCl 0.9% 500 ml [Sodium Chloride 0.9% 500 ML] 500 ml Med 08/30/16 22:16 Active IV 20 mls/hr Nitroglycerin 2 %Ointment [Nitro-Bid 2% Ud Packets Med 08/30/16 20:48 Discontinued *] 1 gm .ROUTE .STK-MED ONE Nitroglycerin 2 %Ointment [Nitro-Bid 2% Ud Packets Med 08/30/16 22:16 Active *] 1 gm TOP Q8HT Nitroglycerin 2 %Ointment [Nitro-Bid 2% Ud Packets Med 08/30/16 20:42 Discontinued *] 1 gm TOP STAT ONE Ondansetron HCl 4 mg/2 ml [Zofran 4 MG/2 ML VIAL] Med 08/30/16 22:16 Active 4 mg IV Q4H PRN PRN Senna/Docusate Sodium Tab [Senokot-S Tablet] Med 08/30/16 22:16 Active 2 udtab PO BID PRN PRN Simvastatin 20Mg [Zocor 20Mg] Med 08/31/16 22:00 Active 20 mg PO HS EKG ROUTINE RT 08/31/16 04:28 Completed EKG ROUTINE RT 09/01/16 05:00 Active EKG ROUTINE RT 09/02/16 05:00 Active EKG ROUTINE RT 09/03/16 05:00 Active Pulse Oximetry Q4H RT 08/30/16 22:16 Active Smoking Cessation Education ONCE RT 08/30/16 23:40 Completed Transfer Order Routine Transfer 08/30/16 21:46 Completed Patient Care Notes (Last 24 hours) 08/31/16 11:20 Nursing Note by JORDANA SUAZO Patient reported to this nurse that "about 45 minutes ago" she became very nauseated and diaphoretic accompanied by a "dull" chest pain in the left upper chest which is "where it is always at when I have it." Patient states that this feeling did not last long and passed and that she "feels fine now." Patient states she has no pain at this time. Advised patient to call for nurse immediately if these symptoms happen again so that patient can be better assessed. Patient's VS are as follows T98.0, P62, RR18, 92% RA, bp 111/56. Will continue to monitor. PR ruled out will schedule patient with Dr Alarcon (Cardiology) - Vitals & Intake/Output Vital Signs: Vital Signs Temperature 98.0 F 08/31/16 11:15 Pulse Rate 62 08/31/16 11:15 Respiratory Rate 18 08/31/16 11:15 Blood Pressure 111/56 08/31/16 11:15 O2 Sat by Pulse Oximetry 92 L 08/31/16 11:15 Intake & Output: Intake & Output 08/28/16 08/29/16 08/30/16 08/31/16 11:59 11:59 11:59 11:59 Intake Total 418 Output Total 325 Balance 93 Weight 97.522 kg - Lab Result Diagrams: 08/30/16 20:40 08/30/16 20:40 Lab Results-Last 24 Hrs: Lab Results-Last 24 Hours 08/30/16 08/31/16 08/31/16 Range/Units 23:45 02:50 05:20 Troponin I < 0.017 < 0.017 < 0.017 (0.000-0.056) ng/ml Triglycerides (30-200) mg/dL Cholesterol (100-200) mg/dL LDL Cholesterol (5-99) mg/dL HDL Cholesterol (35-60) mg/dL Heart Disease Risk Ratio 08/31/16 08/31/16 Range/Units 05:20 08:48 Troponin I < 0.017 (0.000-0.056) ng/ml Triglycerides 178 (30-200) mg/dL Cholesterol 179 (100-200) mg/dL LDL Cholesterol 112 H (5-99) mg/dL HDL Cholesterol 29 L (35-60) mg/dL Heart Disease Risk Ratio 6.2 - Procedures and Test Procedures and Tests throughout Hospitalization: Therapy Orders & Screens 08/30/16 23:40 Smoking Cessation Education ONCE Comment: Diagnosis: chest pain rule out PR Smoking Status: Current every day smoker How long have you smoked: 30 yrs Have you smoked in the past 12 months: Yes Approximately how many cigarettes per day: 20 Do you dip or chew tobacco: No 08/31/16 04:28 EKG ROUTINE Comment: 09/01/16 05:00 EKG ROUTINE Comment: 09/02/16 05:00 EKG ROUTINE Comment: 09/03/16 05:00 EKG ROUTINE Comment: - Discharge Discharge Date: 08/31/16 Disposition: Home, Self-Care Condition: Stable Prescriptions: No Action Carvedilol 6.25 mg [Coreg 6.25 MG] 6.25 mg PO DAILY Divalproex Sodium [Depakote] 1,000 mg PO DAILY Sumatriptan Succinate [Imitrex] 100 mg PO UD Ketorolac Tromethamine [Toradol] 10 mg PO Q8HPRN PRN PRN Reason: Pain Duloxetine HCl [Cymbalta] 60 mg PO DAILY Fluticasone Propionate [Flonase Allergy Relief] 15.8 ml NS DAILY Pravastatin Sodium 20 mg PO DAILY Cyclobenzaprine HCl [Flexeril] 10 mg PO TID PRN PRN PRN Reason: migraines Aspirin 81 gm Chew [Baby Aspirin 81 mg Chew] 81 mg PO DAILY Ibuprofen 200 mg [Motrin 200 mg] 800 mg PO BID PRN PRN Reason: migraines Follow up with: SHAHZAD BOSTON MD [Primary Care Provider] - 1 Week ODESSA PEACOCK [CONSULTING PHYSICIAN] - Call for Appointment
[2016-08-31] MEDS ORDERED: ZOCOR 20MG PO SCH (22:00)
== END 2016-08-31 13:15 | disposition home or self-care (01) ==
LOC: ED 20:20 → MED SURG 22:09
PROVIDERS: ADMIT General Practice; ATTEND General Practice
DX: R07.9 Chest pain, unspecified (principal); I10 Essential (primary) hypertension; Z79.899 Other long term (current) drug therapy
CPT/HCPCS: 36000; 36415; 71010; 80053; 80061; 80339; 83721; 84484; 85025; 93005; 93041; 93268; 96360; 96361; 96374; 96375; 99285; G0378; J2405; A9270-GY

== ENCOUNTER 2020-09-06 01:24 | Emergency (ER) | payer OTHER ==
[2020-09-06] MEDS ORDERED: Zofran 4 MG/2 ML VIAL IV ONE (01:56)
[2020-09-06] MEDS ORDERED: TORAdol 30 mg Injection IV ONE (01:56)
[2020-09-06] MEDS ORDERED: Sodium Chloride 0.9% 500 ML 500 ML IV ONE ×2 (01:57→02:02)
[2020-09-06] MEDS ORDERED: TORAdol 30 mg Injection ONE (02:02)
[2020-09-06] MEDS ORDERED: Zofran 4 MG/2 ML VIAL ONE (02:02)
[2020-09-06] MEDS ORDERED: Flomax 0.4 MG PO STA (02:07)
--- NOTE | 2020-09-06 02:08 | ERPHSYRPT ---
- History of Present Illness Time Seen by Provider: 09/06/20 01:50 Historian: patient Exam Limitations: physical impairment Patient Subjective Stated Complaint: pt states "I was getting ready for bed when the pain started." Triage Nursing Assessment: pt ambulated into the er; pt is axo x4; c/o rt flank and RUQ pain; pt states 10/10 pain to rt abd and rt flank area; pt states she has hx of kidney stones; pt states that she has renal stents due to kidney stones; pt denies urination problems; denies burning with urination; tenderness with palpation to rt flank area; tenderness with palpation to RUQ; abd is soft, round, obese; active bowel sounds in all quads; clear heart tone; pt is restless and unable to sit in one position; pt is diaphoretic; rapid shallow breathing; afebril; hypertensive Physician History: 65 years old female presented in the ER with chief complaint of sudden onset right flank/right lower quadrant pain at around 10:30 PM tonight with radiation to right groin, moderate to severe intensity, sharp in nature, aggravated with movements palpation and partial relief with being still. Reports associated increased urinary frequency but no hematuria. Does have history of kidney stones in the past with similar symptoms. Reports associated nausea but no vomiting. Timing/Duration: hour(s) (3), sudden, worse Activities at Onset: rest Quality: sharpness Abdominal Pain Onset Location: RLQ, flank Pain Radiation: groin Severity of Pain-Max: moderate Severity of Pain-Current: moderate Modifying Factors: Improves With: rest. Worsens With: movement, palpation Associated Symptoms: nausea Previous symptoms: same symptoms as today Allergies/Adverse Reactions: promethazine HCl [From Phenergan] Allergy (Severe, Verified 09/06/20 01:34) Lightheadedness hydromorphone HCl [From Dilaudid] Adverse Reaction (Severe, Verified 09/06/20 01:34) Vomiting morphine Adverse Reaction (Severe, Verified 09/06/20 01:34) Vomiting Home Medications: Carvedilol 6.25 mg [Coreg 6.25 MG] 6.25 mg PO DAILY 09/27/15 [History] Divalproex Sodium [Depakote] 1,000 mg PO DAILY 09/27/15 [History] Duloxetine HCl [Cymbalta] 60 mg PO DAILY 08/19/16 [History] Ketorolac Tromethamine [Toradol] 10 mg PO Q8HPRN PRN 08/19/16 [History] SUMAtriptan succinate [Imitrex] 100 mg PO UD 08/19/16 [History] Aspirin 81 gm Chew [Baby Aspirin 81 mg Chew] 81 mg PO DAILY 08/30/16 [History] Cyclobenzaprine HCl [Flexeril] 10 mg PO TID PRN PRN 08/30/16 [History] Fluticasone Propionate [Flonase Allergy Relief] 15.8 ml NS DAILY 08/30/16 [History] Ibuprofen 200 mg [Motrin 200 mg] 800 mg PO BID PRN 08/30/16 [History] Pravastatin Sodium 20 mg PO DAILY 08/30/16 [History] Hx Tetanus, Diphtheria Vaccination/Date Given: No Hx Influenza Vaccination/Date Given: No Hx Pneumococcal Vaccination/Date Given: No Travel Risk - International Travel Have you traveled outside of the country in past 3 weeks: No - Coronavirus Screening Are you exhibiting any of the following symptoms?: No Close contact with a COVID-19 positive Pt in past 14-21 Days: No - Vaccine Status Have you recieved a Covid-19 vaccination: Yes [employer]: [employer] - Vaccination Dates Date of 2cond Vaccination (if applicable): UNKNOWN - Review of Systems Constitutional: No Symptoms Eyes: No Symptoms Ears, Nose, & Throat: No Symptoms Respiratory: No Symptoms Cardiac: No Symptoms Abdominal/Gastrointestinal: Abdominal Pain, Nausea Genitourinary Symptoms: Frequency Musculoskeletal: No Symptoms Skin: No Symptoms Neurological: No Symptoms Psychological: No Symptoms Endocrine: No Symptoms Hematologic/Lymphatic: No Symptoms Immunological/Allergic: No Symptoms - Past Medical History Pertinent Past Medical History: Yes Neurological History: Migraines Cardiac History: High Cholesterol, Hypertension History: Other Psycho-Social History: Depression, Panic Disorder Other Medical History: seasonal allergies, kidney stones - Past Surgical History Past Surgical History: Yes Gastrointestinal: Cholecystectomy Genitourinary: Other Musculoskeletal: Other Female Surgical History: Hysterectomy Other Surgical History: rotator cuff, kidney stones - stents (Dr. Rush) - Social History Smoking Status: Current every day smoker How long have you smoked: 30 yrs Exposure to second hand smoke: Yes Drug Use: none Patient Lives Alone: No - Nursing Vital Signs Nursing Vital Signs: Initial Vital Signs Temperature 98 F 09/06/20 01:36 Pulse Rate 71 09/06/20 01:36 Respiratory Rate 22 09/06/20 01:36 Blood Pressure 194/108 09/06/20 01:36 O2 Sat by Pulse Oximetry 97 09/06/20 01:36 Pain Scale Pain Intensity 0 - Physical Exam General Appearance: no apparent distress Eye Exam: PERRL/EOMI Ears, Nose, Throat Exam: normal ENT inspection Neck Exam: normal inspection, non-tender, supple, full range of motion Respiratory Exam: normal breath sounds, lungs clear Cardiovascular Exam: regular rate/rhythm, normal heart sounds Gastrointestinal/Abdomen Exam: soft, normal bowel sounds, tenderness (Right flan k/right lower quadrant) Back Exam: normal inspection, normal range of motion (. Negative rebound tenderness.) Extremity Exam: normal inspection, normal range of motion Neurologic Exam: alert, oriented x 3, cooperative, normal mood/affect Skin Exam: normal color SpO2 Interpretation: normal SpO2: 97 O2 Delivery: Room Air Ordered Tests: Active Orders 24 hr Category Date Time Status IV Insertion STAT Care 09/06/20 01:56 Active NPO (ED) STAT Care 09/06/20 01:56 Active ABDOMEN AND PELVIS W/0 CONTRAS [CT] Stat Exams 09/06/20 01:57 Taken CBC W DIFF Stat Lab 09/06/20 02:15 Completed CMP Stat Lab 09/06/20 02:15 Completed LIPASE Stat Lab 09/06/20 02:15 Completed UA W/RFX UR CULTURE Stat Lab 09/06/20 02:00 Completed Medication Summary Generic Name Dose Route Start Last Admin Trade Name Freq PRN Reason Stop Dose Admin Sodium Chloride 1,000 mls @ 125 mls/hr 09/06/20 03:45 09/06/20 03:42 Sodium Chloride 0.9% 1000 Ml IV 10/06/20 03:44 125 mls/hr .Q8H BRANDON Administration Discontinued Medications Generic Name Dose Route Start Last Admin Trade Name Freq PRN Reason Stop Dose Admin Sodium Chloride 500 mls @ 500 mls/hr 09/06/20 01:57 09/06/20 03:34 Sodium Chloride 0.9% 500 Ml IV 09/06/20 02:56 Infused .Q1H ONE Infusion Sodium Chloride Confirm 09/06/20 02:02 Sodium Chloride 0.9% 500 Ml Administered 09/06/20 02:03 Dose 500 mls @ ud IV .STK-MED ONE Ceftriaxone Sodium/Dextrose 1 g in 50 mls @ 100 mls/hr 09/06/20 03:38 09/06/20 05:12 Rocephin 1 Gm-D5w 50 Ml Bag IV 09/06/20 04:07 Infused STAT STA Infusion Ceftriaxone Sodium/Dextrose Confirm 09/06/20 03:40 Rocephin 1 Gm-D5w 50 Ml Bag Administered 09/06/20 03:41 Dose 1 g in 50 mls @ ud IV .STK-MED ONE Ketorolac Tromethamine 30 mg 09/06/20 01:56 09/06/20 02:03 Toradol 30 Mg Injection IV 09/06/20 01:57 30 mg STAT ONE Administration Ketorolac Tromethamine Confirm 09/06/20 02:02 Toradol 30 Mg Injection Administered 09/06/20 02:03 Dose 30 mg .ROUTE .STK-MED ONE Morphine Sulfate 4 mg 09/06/20 03:07 09/06/20 03:26 Morphine Sulfate 4 Mg Inj IV 09/06/20 03:08 4 mg STAT ONE Administration Morphine Sulfate Confirm 09/06/20 03:14 Morphine Sulfate 4 Mg Inj Administered 09/06/20 03:15 Dose 4 mg .ROUTE .STK-MED ONE Ondansetron HCl 4 mg 09/06/20 01:56 09/06/20 02:02 Zofran 4 Mg/2 Ml Vial IV 09/06/20 01:57 4 mg STAT ONE Administration Ondansetron HCl Confirm 09/06/20 02:02 Zofran 4 Mg/2 Ml Vial Administered 09/06/20 02:03 Dose 4 mg .ROUTE .STK-MED ONE Tamsulosin HCl 0.8 mg 09/06/20 02:07 09/06/20 02:11 Flomax 0.4 Mg PO 09/06/20 02:08 0.8 mg ONCE STA Administration Tamsulosin HCl Confirm 09/06/20 02:11 Flomax 0.4 Mg Administered 09/06/20 02:12 Dose 0.8 mg .ROUTE .STK-MED ONE Lab/Rad Data: Laboratory Result Diagrams 09/06/20 02:15 09/06/20 02:15 Laboratory Results 09/06/20 09/06/20 09/06/20 Range/Units 02:15 02:15 02:00 WBC 7.3 (4.0-10.5) K/mm3 RBC 4.97 (4.1-5.4) M/mm3 Hgb 14.3 (12.0-16.0) gm/dl Hct 43.1 (35-47) % MCV 86.7 (78-100) fl MCH 28.8 (26-32) pg MCHC 33.2 (32-36) g/dl RDW 14.3 H (11.5-14.0) % Plt Count 213 (150-450) K/mm3 MPV 11.0 (7.5-11.0) fl Gran % 53.9 (36.0-66.0) % Eos # (Auto) 0.15 (0-0.5) Absolute Lymphs (auto) 2.69 (1.0-4.6) Absolute Monos (auto) 0.49 (0.0-1.3) Lymphocytes % 36.9 (24.0-44.0) % Monocytes % 6.7 (0.0-12.0) % Eosinophils % 2.1 (0.00-5.0) % Basophils % 0.4 (0.0-0.4) % Absolute Granulocytes 3.93 (1.4-6.9) Basophils # 0.03 (0-0.4) Sodium 138 (137-145) mmol/L Potassium 4.2 (3.5-5.1) mmol/L Chloride 103 (98-107) mmol/L Carbon Dioxide 25 (22-30) mmol/L Anion Gap 13.5 (5-15) MEQ/L BUN 13 (7-17) mg/dL Creatinine 0.72 (0.52-1.04) mg/dL Estimated GFR > 60.0 ML/MIN Glucose 128 H (74-106) mg/dL Calcium 9.8 (8.4-10.2) mg/dL Total Bilirubin 0.50 (0.2-1.3) mg/dL AST 21 (14-36) U/L ALT 17 (0-35) U/L Alkaline Phosphatase 93 (38-126) U/L Serum Total Protein 7.3 (6.3-8.2) g/dL Albumin 4.5 (3.5-5.0) g/dL Lipase 109 (23-300) U/L Urine Color YELLOW (YELLOW) Urine Appearance CLOUDY (CLEAR) Urine pH 6.0 (5-6) Ur Specific [place] 1.018 (1.005-1.025) Urine Protein NEGATIVE (Negative) Urine Ketones NEGATIVE (NEGATIVE) Urine Blood NEGATIVE (0-5) Agustín/ul Urine Nitrite NEGATIVE (NEGATIVE) Urine Bilirubin NEGATIVE (NEGATIVE) Urine Urobilinogen NEGATIVE (0-1) mg/dL Ur Leukocyte Esterase TRACE (NEGATIVE) Urine WBC (Auto) 3-5 (0-5) /HPF Urine RBC (Auto) 0-2 (0-2) /HPF U Epithel Cells (Auto) MODERATE (FEW) /HPF Urine Bacteria (Auto) RARE (NEGATIVE) /HPF Urine Mucus (Auto) SLIGHT (NEGATIVE) /HPF Urine Culture Reflexed NO (NO) Urine Glucose NEGATIVE (NEGATIVE) mg/dL - Progress Progress: improved, pain not gone completely, re-examined Progress Note: 09/06/20 05:32 65 years old is evaluated for right flank pain. She is given symptomatic treatment for pain but pain is not completely resolved. She has normal white count, grossly unremarkable chemistries. No UTI. CT showed 3 mm stone with obstruction. She is given Rocephin prophylactically. Do not have urology services at this at [facility]. Discussed with Dr. Heladio GARDINER at [facility] and patient is accepted for transfer. Discussed with : Other Counseled pt/family regarding: lab results, diagnosis, rad results - Departure Departure Disposition: Transfer Clinical Impression: Obstructive uropathy Condition: Stable Critical Care Time: No Referrals: SHAHZAD BOSTON MD [Primary Care Provider] -
[2020-09-06] MEDS ORDERED: Flomax 0.4 MG ONE (02:11)
[2020-09-06 02:20] LABS: Absolute Neutrophil Ct (ANC) 3.93 (1.4-6.9); BASOPHIL % 0.4 % (0.0-0.4); Basophil (Absolute #) 0.03 (0-0.4); Eosinophil % 2.1 % (0.00-5.0); Eosinophil (Absolute #) 0.15 (0-0.5); Hematocrit 43.1 % (35-47); Hemoglobin 14.3 gm/dl (12.0-16.0); Lymphocyte (Absolute #) 2.69 (1.0-4.6); Lymphocytes % 36.9 % (24.0-44.0); Mean Cell Volume 86.7 fl (78-100); Mean Corpuscular Hemoglobin 28.8 pg (26-32); Mean Corpuscular Hgb Concent. 33.2 g/dl (32-36); Monocyte (Absolute #) 0.49 (0.0-1.3); Monocytes % 6.7 % (0.0-12.0); Neutrophil % 53.9 % (36.0-66.0); Platelet Count 213 K/mm3 (150-450); Red Blood Count 4.97 M/mm3 (4.1-5.4); Red Cell Distribution Width 14.3 % (11.5-14.0); White Blood Count 7.3 K/mm3 (4.0-10.5)
[2020-09-06 02:28] LABS: Appearance CLOUDY (CLEAR); Bacteria RARE /HPF (NEGATIVE); Bilirubin NEGATIVE (NEGATIVE); Blood NEGATIVE Ery/ul (0-5); Epithelial Cells MODERATE /HPF (FEW); Glucose NEGATIVE (NEGATIVE); Ketones NEGATIVE (NEGATIVE); Leukocyte Esterase TRACE (NEGATIVE); Mucus SLIGHT /HPF (NEGATIVE); Nitrite NEGATIVE (NEGATIVE); Protein,Urine Dip NEGATIVE (Negative); RBC 0-2 /HPF (0-2); Specific Gravity 1.018 (1.005-1.025); Urobilinogen NEGATIVE mg/dL (0-1)
[2020-09-06 02:34] LABS: ALBUMIN 4.5 g/dL (3.5-5.0); ALKALINE PHOSPHATASE 93 U/L (38-126); ANION GAP 13.5 MEQ/L (5-15); BLOOD UREA NITROGEN 13 mg/dL (7-17); CHLORIDE 103 mmol/L (98-107); Calcium 9.8 mg/dL (8.4-10.2); Carbon Dioxide 25 mmol/L (22-30); Creatinine 1 0.72 mg/dL (0.52-1.04); EST GLOMERULAR FILTRATION RATE > 60.0 ML/MIN; Glucose 128 mg/dL (74-106); LIPASE 109 U/L (23-300); Potassium 4.2 mmol/L (3.5-5.1); SGOT/AST 21 U/L (14-36); SGPT/ALT 17 U/L (0-35); SODIUM 138 mmol/L (137-145); Total Protein 7.3 g/dL (6.3-8.2)
[2020-09-06] MEDS ORDERED: MORPHINE SULFATE 4 MG INJ IV ONE (03:07)
[2020-09-06] MEDS ORDERED: MORPHINE SULFATE 4 MG INJ ONE (03:14)
[2020-09-06] MEDS ORDERED: ROCEPHIN 1 Gm-D5w 50 ml Bag** 1 G/50 ML IVPB IV STA (03:38)
[2020-09-06] MEDS ORDERED: ROCEPHIN 1 Gm-D5w 50 ml Bag** 1 G/50 ML IVPB IV ONE (03:40)
[2020-09-06] MEDS ORDERED: Sodium Chloride 0.9% 1000 ML 1,000 ML ONE (03:40)
[2020-09-06] MEDS ORDERED: Sodium Chloride 0.9% 1000 ML 1,000 ML IV SCH (03:45)
[2020-09-06 06:01] VITALS: BP 150/72; PULSE 68; O2SAT 95
--- NOTE | 2020-09-06 08:52 | XRAY ---
Indication: Right flank pain. Multiple contiguous axial images obtained through the abdomen and pelvis without contrast using renal stone protocol. Comparison: September 27, 2015. Lung bases clear of infiltrate and effusion. Stable left lower lobe peripheral noncalcified micronodule favored to be benign given stability over 2 years. Heart is not enlarged. New small hiatal hernia. New 3-4 mm distal right ureteral calculus approximately 2 cm proximal to the UVJ. Proximal right ureter is distended up to 11-12 mm along with moderate hydronephrosis and minimal perinephric stranding consistent with obstructive uropathy. There remains a few punctate renal calculi bilaterally. Noncontrasted stomach and bowel loops are nonobstructed again with duodenal diverticulum. Normal appendix. Previous cholecystectomy and hysterectomy. No free fluid/air. Remaining liver, pancreas, spleen, adrenal glands, and urinary bladder are unremarkable for noncontrast exam. There remains mild scattered aortoiliac calcifications without AAA. Osseous structures intact again with minimal lower lumbar degenerative changes. Impression: 1. New 3-4 mm distal right ureteral calculus producing obstructive uropathy as detailed. Additional bilateral renal micro-calculi. 2. New small hiatal hernia. 3. Again incidental benign left lower lobe micronodule, duodenal diverticulum, and chronic bony findings. Comment: Preliminary interpretation was made by [facility]. No critical discrepancy
== END 2020-09-06 06:21 | disposition short-term general hospital (02) ==
LOC: ED 01:24
DX: N13.9 Obstructive and reflux uropathy, unspecified (principal); Z87.442 Personal history of urinary calculi; R10.11 Right upper quadrant pain; R10.9 Unspecified abdominal pain; Z79.899 Other long term (current) drug therapy
CPT/HCPCS: 36000; 36415; 74176; 80053; 81001; 83690; 85025; 96360; 96374; 96375; 99285; J0696; J1885; J2270; J2405; A9270-GY

== ENCOUNTER 2021-08-12 13:21 | Observation (INO) | payer OTHER ==
[2021-08-12] MEDS ORDERED: BABY ASPIRIN 81 MG CHEW PO ONE (13:52)
--- NOTE | 2021-08-12 13:56 | ERPHSYRPT ---
- History of Present Illness Time Seen by Provider: 08/12/21 13:51 Patient Subjective Stated Complaint: pt here for chest pain for about 2 weeks now getting worse, was seen at drs office yesterday and she states ekg showed an old [place], she also states she has been under a lot of stress since her dad in april. Triage Nursing Assessment: pt alert, resp easy, skin w/d/p, face mask in place, no edema noted, points pain under left breast Physician History: 66 years old female with history of tobacco abuse, hypertension, hyperlipidemia, anxiety presented in the ER with chief complaint of left-sided chest pain dull aching for the last 2 weeks, continuous, without any significant aggravating or relieving factors, associated with radiation to left shoulder/upper arm. Denies associated palpitation/shortness of breath but does feel dizzy and lightheaded at times. No fever or chills reported. Denies any cough or sick contact. Does not have any cardiac work-up done in the recent past. Timing/Duration: week(s) (2), constant, gradual onset, worse Activities at Onset: activity, rest Quality: aching Chest Pain Radiation: arm Severity of Pain-Max: moderate Severity of Pain-Current: mild Modifying Factors: Improves With: nothing Associated Symptoms: dizziness Prior Chest Pain/Cardiac Workup: no prior chest pain, no prior cardiac workup Nitro Today/Relief: no nitro taken today Aspirin Treatment Today: no aspirin today Allergies/Adverse Reactions: promethazine HCl [From Phenergan] Allergy (Severe, Verified 08/12/21 15:04) Lightheadedness hydromorphone HCl [From Dilaudid] Adverse Reaction (Severe, Verified 08/12/21 15:04) Vomiting morphine Adverse Reaction (Severe, Verified 08/12/21 15:04) Vomiting Home Medications: Carvedilol 6.25 mg [Coreg 6.25 MG] 6.25 mg PO DAILY 09/27/15 [History] Duloxetine HCl [Cymbalta] 60 mg PO DAILY 08/19/16 [History] SUMAtriptan succinate [Imitrex] 100 mg PO UD 08/19/16 [History] Aspirin 81 gm Chew [Baby Aspirin 81 mg Chew] 81 mg PO DAILY 08/30/16 [History] Fluticasone Propionate [Flonase Allergy Relief] .8 ml NS DAILY 08/30/16 [History] Pravastatin Sodium 40 mg PO DAILY 08/30/16 [History] ARIPiprazole [Aripiprazole] 1 ea DAILY 08/12/21 [History] Carvedilol 6.25 mg [Coreg 6.25 MG] 1 ea DAILY 08/12/21 [History] Famotidine 20 mg [Pepcid 20 MG] 20 mg PO DAILY 08/12/21 [History] PANTOPRAZOLE 40 mg Tablet [Protonix 40MG Tablet] 40 mg PO QAM 08/12/21 [History] Hx Tetanus, Diphtheria Vaccination/Date Given: No Hx Influenza Vaccination/Date Given: No Hx Pneumococcal Vaccination/Date Given: No Immunizations Up to Date: Yes Travel Risk - International Travel Have you traveled outside of the country in past 3 weeks: No - Coronavirus Screening Are you exhibiting any of the following symptoms?: No - Vaccine Status Have you recieved a Covid-19 vaccination: Yes [employer]: [employer] - Vaccination Dates Date of 2cond Vaccination (if applicable): 2020 - Review of Systems Constitutional: No Symptoms Eyes: No Symptoms Ears, Nose, & Throat: No Symptoms Respiratory: No Symptoms Cardiac: Chest Pain Abdominal/Gastrointestinal: No Symptoms Genitourinary Symptoms: No Symptoms Musculoskeletal: No Symptoms Skin: No Symptoms Neurological: Dizziness Psychological: Anxiety Endocrine: No Symptoms Hematologic/Lymphatic: No Symptoms Immunological/Allergic: No Symptoms - Past Medical History Pertinent Past Medical History: Yes Neurological History: Migraines Cardiac History: High Cholesterol, Hypertension History: Other Psycho-Social History: Depression, Panic Disorder Other Medical History: seasonal allergies, kidney stones - Past Surgical History Past Surgical History: Yes Gastrointestinal: Cholecystectomy Genitourinary: Other Musculoskeletal: Other Female Surgical History: Hysterectomy Other Surgical History: rotator cuff, kidney stones - stents (Dr. Rush) - Social History Smoking Status: Current every day smoker How long have you smoked: 30 yrs Exposure to second hand smoke: Yes Drug Use: none Patient Lives Alone: No - Nursing Vital Signs Nursing Vital Signs: Initial Vital Signs Temperature 97.0 F 08/12/21 13:25 Pulse Rate 69 08/12/21 13:25 Respiratory Rate 16 08/12/21 13:25 Blood Pressure 163/92 08/12/21 13:25 O2 Sat by Pulse Oximetry 97 08/12/21 13:25 Pain Scale Pain Intensity 2 - Physical Exam General Appearance: no apparent distress, alert, anxiety Eye Exam: PERRL/EOMI, eyes nml inspection Ears, Nose, Throat Exam: normal ENT inspection, pharynx normal Neck Exam: normal inspection, non-tender, full range of motion Respiratory Exam: normal breath sounds, lungs clear Cardiovascular Exam: regular rate/rhythm, normal heart sounds Gastrointestinal/Abdomen Exam: soft, normal bowel sounds, No tenderness Back Exam: normal inspection Extremity Exam: normal inspection, normal range of motion Neurologic Exam: alert, oriented x 3, cooperative, supervisor microwave II-XII nml as tested, nml cerebellar function, nml station & gait, sensation nml, No normal mood/affect (Anxious), No motor deficits Skin Exam: normal color SpO2 Interpretation: normal SpO2: 97 O2 Delivery: Room Air - Course EKG Interpreted by Me: RATE (73), Sinus Rhythm, NORMAL AXIS, NORMAL INTERVALS, Non-specific ST Changes Ordered Tests: Active Orders 24 hr Category Date Time Status Weight Calculator STAT Care 08/12/21 13:52 Active EKG-ER Only STAT Care 08/12/21 13:52 Active IV Insertion STAT Care 08/12/21 13:52 Active CHEST 1 VIEW (PORTABLE) Stat Exams 08/12/21 13:52 Completed CBC W DIFF Stat Lab 08/12/21 14:00 Completed CMP Stat Lab 08/12/21 14:00 Completed NT PRO BNP Stat Lab 08/12/21 14:00 Completed TROPONIN Q3H Lab 08/12/21 14:00 Completed TROPONIN Q3H Lab 08/12/21 17:00 Ordered TROPONIN Q3H Lab 08/12/21 20:00 Ordered TROPONIN Q3H Lab 08/12/21 23:00 Ordered TROPONIN Q3H Lab 08/13/21 02:00 Ordered Medication Summary Discontinued Medications Generic Name Dose Route Start Last Admin Trade Name Freq PRN Reason Stop Dose Admin Aspirin 324 mg 08/12/21 13:52 08/12/21 13:58 Aspirin 81 Mg Tab.Chew PO 08/12/21 13:53 324 mg STAT ONE Administration Lab/Rad Data: Laboratory Result Diagrams 08/12/21 14:00 08/12/21 14:00 Laboratory Results 04/12/22 04/12/22 04/12/22 Range/Units 14:00 14:00 14:00 WBC 5.7 (4.0-10.5) K/mm3 RBC 4.98 (4.1-5.4) M/mm3 Hgb 14.3 (12.0-16.0) gm/dl Hct 43.5 (35-47) % MCV 87.3 (78-100) fl MCH 28.7 (26-32) pg MCHC 32.9 (32-36) g/dl RDW 15.3 H (11.5-14.0) % Plt Count 232 (150-450) K/mm3 MPV 10.8 (7.5-11.0) fl Gran % 47.1 (36.0-66.0) % Eos # (Auto) 0.21 (0-0.5) Absolute Lymphs (auto) 2.39 (1.0-4.6) Absolute Monos (auto) 0.38 (0.0-1.3) Lymphocytes % 42.0 (24.0-44.0) % Monocytes % 6.7 (0.0-12.0) % Eosinophils % 3.7 (0.00-5.0) % Basophils % 0.5 (0.0-0.4) % Absolute Granulocytes 2.68 (1.4-6.9) Basophils # 0.03 (0-0.4) Sodium 138 (137-145) mmol/L Potassium 5.0 (3.5-5.1) mmol/L Chloride 103 (98-107) mmol/L Carbon Dioxide 26 (22-30) mmol/L Anion Gap 13.4 (5-15) MEQ/L BUN 11 (7-17) mg/dL Creatinine 0.55 (0.52-1.04) mg/dL Estimated GFR > 60.0 ML/MIN Glucose 95 (74-106) mg/dL Calcium 9.6 (8.4-10.2) mg/dL Total Bilirubin 0.80 (0.2-1.3) mg/dL AST 25 (14-36) U/L ALT 15 (0-35) U/L Alkaline Phosphatase 91 (38-126) U/L Troponin I < 0.012 (0.000-0.034) ng/mL NT-Pro-B Natriuret Pep 71.0 (0-900) pg/mL Serum Total Protein 7.4 (6.3-8.2) g/dL Albumin 4.4 (3.5-5.0) g/dL - Progress Progress: improved Air Movement: good Progress Note: 08/12/21 15:56 66-year-old is evaluated for chest pain. EKG showed normal sinus rhythm without any acute ischemic changes. Negative initial troponin. Chest x-ray negative for any acute cardiopulmonary findings. Patient has multiple risk factor with CAD, discussed with Dr. BOSTON, reviewed history, work-up and patient is admitted for observation. Blood Culture(s) Obtained: No Antibiotics given: No Discussed with : Kaia Will see patient in: hospital (observation) Counseled pt/family regarding: lab results, diagnosis, rad results, smoking cessation - Departure Departure Disposition: Observation Clinical Impression: Chest pain, rule out acute myocardial infarction Condition: Stable Critical Care Time: No
--- NOTE | 2021-08-12 14:09 | XRAY ---
Indication: Chest pain. Comparison: August 30, 2016. Portable chest now demonstrates normal heart and lungs. Bony thorax intact. No new/acute findings.
[2021-08-12 14:15] LABS: Absolute Neutrophil Ct (ANC) 2.68 (1.4-6.9); Basophil (Absolute #) 0.03 (0-0.4); Eosinophil % 3.7 % (0.00-5.0); Eosinophil (Absolute #) 0.21 (0-0.5); Hematocrit 43.5 % (35-47); Hemoglobin 14.3 gm/dl (12.0-16.0); Lymphocyte (Absolute #) 2.39 (1.0-4.6); Mean Cell Volume 87.3 fl (78-100); Mean Corpuscular Hemoglobin 28.7 pg (26-32); Mean Corpuscular Hgb Concent. 32.9 g/dl (32-36); Mean Platelet Volume 10.8 fl (7.5-11.0); Monocyte (Absolute #) 0.38 (0.0-1.3); Monocytes % 6.7 % (0.0-12.0); Neutrophil % 47.1 % (36.0-66.0); Platelet Count 232 K/mm3 (150-450); Red Blood Count 4.98 M/mm3 (4.1-5.4); Red Cell Distribution Width 15.3 % (11.5-14.0); White Blood Count 5.7 K/mm3 (4.0-10.5)
[2021-08-12 14:28] LABS: ALBUMIN 4.4 g/dL (3.5-5.0); ALKALINE PHOSPHATASE 91 U/L (38-126); ANION GAP 13.4 MEQ/L (5-15); BLOOD UREA NITROGEN 11 mg/dL (7-17); CHLORIDE 103 mmol/L (98-107); Calcium 9.6 mg/dL (8.4-10.2); Carbon Dioxide 26 mmol/L (22-30); Creatinine 1 0.55 mg/dL (0.52-1.04); EST GLOMERULAR FILTRATION RATE > 60.0 ML/MIN; Glucose 95 mg/dL (74-106); SGOT/AST 25 U/L (14-36); SGPT/ALT 15 U/L (0-35); SODIUM 138 mmol/L (137-145); Total Protein 7.4 g/dL (6.3-8.2)
[2021-08-12 16:46] LABS: INFLUENZA A NEGATIVE (NEGATIVE); INFLUENZA B NEGATIVE (NEGATIVE); RESPIRATORY SYNCTIAL VIRUS NEGATIVE (Negative); SARS-CoV-2 Xpert Express NEGATIVE (NEGATIVE)
[2021-08-12] MEDS ORDERED: TYLENOL 325 MG PO PRN (18:09)
[2021-08-12] MEDS ORDERED: Zofran 4 MG/2 ML VIAL IV PRN (18:09)
[2021-08-12] MEDS ORDERED: DUONEB 0.5-3 MG/3 ml Neb IH SCH (19:00)
[2021-08-12] MEDS ORDERED: xanAX 0.5 MG PO PRN (19:41)
[2021-08-12] MEDS: Coreg 6.25 MG PO SCH (21:16)
[2021-08-12] MEDS: Pepcid 20 MG PO SCH (21:16)
[2021-08-12] MEDS ORDERED: Abilify 10 MG ONE (21:21)
[2021-08-12] MEDS ORDERED: Abilify 10 MG PO ONE (22:00)
[2021-08-13 03:33] LABS: ALBUMIN 3.8 g/dL (3.5-5.0); ALKALINE PHOSPHATASE 81 U/L (38-126); ANION GAP 10.8 MEQ/L (5-15); BLOOD UREA NITROGEN 12 mg/dL (7-17); CHLORIDE 105 mmol/L (98-107); Calcium 9.1 mg/dL (8.4-10.2); Carbon Dioxide 27 mmol/L (22-30); Creatinine 1 0.71 mg/dL (0.52-1.04); EST GLOMERULAR FILTRATION RATE > 60.0 ML/MIN; Glucose 95 mg/dL (74-106); Potassium 4.4 mmol/L (3.5-5.1); SGOT/AST 18 U/L (14-36); SGPT/ALT 13 U/L (0-35); SODIUM 138 mmol/L (137-145); Total Protein 6.7 g/dL (6.3-8.2)
[2021-08-13 03:45] LABS: Absolute Neutrophil Ct (ANC) 2.24 (1.4-6.9); Basophil (Absolute #) 0.03 (0-0.4); Eosinophil % 4.2 % (0.00-5.0); Eosinophil (Absolute #) 0.25 (0-0.5); Hematocrit 41.4 % (35-47); Hemoglobin 13.6 gm/dl (12.0-16.0); Lymphocyte (Absolute #) 2.93 (1.0-4.6); Lymphocytes % 49.2 % (24.0-44.0); Mean Cell Volume 88.1 fl (78-100); Mean Corpuscular Hemoglobin 28.9 pg (26-32); Mean Corpuscular Hgb Concent. 32.9 g/dl (32-36); Mean Platelet Volume 10.5 fl (7.5-11.0); Monocytes % 8.4 % (0.0-12.0); Neutrophil % 37.7 % (36.0-66.0); Platelet Count 213 K/mm3 (150-450); Red Cell Distribution Width 15.1 % (11.5-14.0)
[2021-08-13] MEDS: Pepcid 20 MG PO SCH (09:43)
[2021-08-13] MEDS: Coreg 6.25 MG PO SCH (09:46)
[2021-08-13] MEDS ORDERED: NON-FORMULARY ITEM (Duloxetine Hcl [Cymbalta] 60 MG Capsule.Dr) PO SCH (10:00)
[2021-08-13] MEDS ORDERED: Cymbalta 30 MG Capsule PO SCH (10:00)
[2021-08-13] MEDS ORDERED: Abilify 10 MG PO SCH (10:00)
[2021-08-13] MEDS ORDERED: PROTONIX 40 MG IV IV SCH (10:00)
[2021-08-13] MEDS ORDERED: NON-FORMULARY ITEM (Aripiprazole [Aripiprazole] 5 MG Tablet) PO SCH (10:00)
[2021-08-13] MEDS ORDERED: ZOCOR 20MG PO SCH (10:00)
[2021-08-13] MEDS ORDERED: NON-FORMULARY ITEM (Pravastatin Sodium [Pravastatin Sodium] 20 MG Tablet) PO SCH (10:00)
[2021-08-13] MEDS ORDERED: Protonix 40MG Tablet PO SCH (10:00)
[2021-08-13 12:00] VITALS: BP 125/56; PULSE 66; O2SAT 96
--- NOTE | 2021-08-13 13:25 | PCM.SSS ---
History of Present Illness - Chief Complaint Chief Complaint: Chest pain rule out acute MA History of Present Illness: is a 66 year old female.with history of tobacco abuse, hypertension, hyperlipidemia, anxiety presented in the ER with chief complaint of left-sided chest pain dull aching for the last 2 weeks, continuous, without any significant aggravating or relieving factors, associated with radiation to left shoulder/upper arm. Denies associated palpitation/shortness of breath but does feel dizzy and lightheaded at times. No fever or chills reported. Denies any cough or sick contact. Does not have any cardiac work-up done in the recent past. Timing/Duration: week(s) (2), constant, gradual onset, worse Activities at Onset: activity, rest Quality: aching Chest Pain Radiation: arm Severity of Pain-Max: moderate Severity of Pain-Current: mild Modifying Factors: Improves With: nothing Associated Symptoms: dizziness Prior Chest Pain/Cardiac Workup: no prior chest pain, no prior cardiac workup Nitro Today/Relief: no nitro taken today Aspirin Treatment Today: no aspirin today - Review of Systems Constitutional: No Fever, No Chills Eyes: No Symptoms Ears, Nose, & Throat: No Symptoms Respiratory: No Cough, No Short Of Breath Cardiac: No Chest Pain, No Edema, No Syncope Abdominal/Gastrointestinal: No Abdominal Pain, No Nausea, No Vomiting, No Diarrhea Genitourinary Symptoms: No Dysuria Musculoskeletal: No Back Pain, No Neck Pain Skin: No Rash Neurological: No Dizziness, No Focal Weakness, No Sensory Changes Psychological: No Symptoms Endocrine: No Symptoms Hematologic/Lymphatic: No Symptoms Immunological/Allergic: No Symptoms Medications & Allergies Home Medications: Home Medication List Carvedilol 6.25 mg [Coreg 6.25 MG] 6.25 mg PO BID 09/27/15 [History Confirmed 08/12/21] Duloxetine HCl [Cymbalta] 60 mg PO DAILY 08/19/16 [History Confirmed 08/12/21] Pravastatin Sodium 20 mg PO DAILY 08/30/16 [History Confirmed 08/12/21] ALPRAZolam [Alprazolam] 0.5 mg PO TID PRN 08/12/21 [History Confirmed 08/12/21] ARIPiprazole [Aripiprazole] 5 mg PO HS 08/12/21 [History Confirmed 08/13/21] Famotidine 20 mg [Pepcid 20 MG] 20 mg PO BID 08/12/21 [History Confirmed 08/12/21] PANTOPRAZOLE 40 mg Tablet [Protonix 40MG Tablet] 40 mg PO QAM 08/12/21 [History Confirmed 08/12/21] Isosorbide Mononitrate 30 mg [Imdur 30 MG] 30 mg PO DAILY #30 tab 08/13/21 [Rx] Allergies/Adverse Reactions: Allergies Allergy/AdvReac Type Severity Reaction Status Date / Time promethazine HCl Allergy Severe Lightheaded Verified 08/12/21 15:04 [From Phenergan] ness hydromorphone HCl AdvReac Severe Vomiting Verified 08/12/21 15:04 [From Dilaudid] morphine AdvReac Severe Vomiting Verified 08/12/21 15:04 - Past Medical History Past Medical History: Yes Neurological History: Migraines Cardiac History: High Cholesterol, Hypertension History: Other Pyscho-Social History: Depression, Panic Disorder Comment: seasonal allergies, kidney stones - Past Surgical History Past Surgical History: Yes GI Surgical History: Cholecystectomy Genitourinary Surgical Hx: Other Musculskeletal Surgical Hx: Other Female Surgical History: Hysterectomy Other Surgical History: rotator cuff, kidney stones - stents (Dr. Rush) - Social History Smoking Status: Current every day smoker How long have you smoked: 30 yrs Exposure to second hand smoke: Yes Alcohol: None Drug Use: none - Physical Exam Vital Signs: Vital Signs - 24 hr Temp Pulse Pulse Resp BP Pulse Ox 08/13/21 12:00 98.2 F 66 16 125/56 96 08/13/21 07:39 97.5 F 87 16 147/60 93 L 08/13/21 03:47 97.1 F 71 18 113/57 95 08/12/21 23:53 98.2 F 60 16 129/67 96 08/12/21 20:00 97.7 F 66 21 174/74 97 08/12/21 19:16 68 20 95 08/12/21 18:19 97.7 F 66 21 174/74 97 08/12/21 17:00 60 16 178/92 98 08/12/21 16:00 59 L 14 170/73 99 08/12/21 15:57 97 08/12/21 15:04 62 16 182/79 98 08/12/21 14:27 63 16 124/94 98 08/12/21 14:25 63 08/12/21 13:25 97.0 F 69 16 163/92 97 General Appearance: no apparent distress, alert Neurologic Exam: alert, oriented x 3, cooperative, normal mood/affect, nml cerebellar function, nml station & gait, sensation nml, No motor deficits Eye Exam: PERRL/EOMI, eyes nml inspection Ears, Nose, Throat Exam: normal ENT inspection, TMs normal, pharynx normal, moist mucous membranes Neck Exam: normal inspection, non-tender, supple, full range of motion Respiratory Exam: normal breath sounds, lungs clear, No respiratory distress Cardiovascular Exam: regular rate/rhythm, normal heart sounds, normal peripheral pulses Gastrointestinal/Abdomen Exam: soft, normal bowel sounds, No tenderness, No mass Back Exam: normal inspection, normal range of motion, No CVA tenderness, No vertebral tenderness Extremity Exam: normal inspection, normal range of motion, pelvis stable Skin Exam: normal color, warm, dry, No rash Lymphatic Exam: No adenopathy Results - Labs Lab/Micro Results: Lab Results-Last 24 Hours 08/12/21 08/12/21 08/12/21 Range/Units 14:00 14:00 14:00 WBC 5.7 (4.0-10.5) K/mm3 RBC 4.98 (4.1-5.4) M/mm3 Hgb 14.3 (12.0-16.0) gm/dl Hct 43.5 (35-47) % MCV 87.3 (78-100) fl MCH 28.7 (26-32) pg MCHC 32.9 (32-36) g/dl RDW 15.3 H (11.5-14.0) % Plt Count 232 (150-450) K/mm3 MPV 10.8 (7.5-11.0) fl Gran % 47.1 (36.0-66.0) % Eos # (Auto) 0.21 (0-0.5) Absolute Lymphs (auto) 2.39 (1.0-4.6) Absolute Monos (auto) 0.38 (0.0-1.3) Lymphocytes % 42.0 (24.0-44.0) % Monocytes % 6.7 (0.0-12.0) % Eosinophils % 3.7 (0.00-5.0) % Basophils % 0.5 (0.0-0.4) % Absolute Granulocytes 2.68 (1.4-6.9) Basophils # 0.03 (0-0.4) Sodium 138 (137-145) mmol/L Potassium 5.0 (3.5-5.1) mmol/L Chloride 103 (98-107) mmol/L Carbon Dioxide 26 (22-30) mmol/L Anion Gap 13.4 (5-15) MEQ/L BUN 11 (7-17) mg/dL Creatinine 0.55 (0.52-1.04) mg/dL Estimated GFR > 60.0 ML/MIN Glucose 95 (74-106) mg/dL Calcium 9.6 (8.4-10.2) mg/dL Total Bilirubin 0.80 (0.2-1.3) mg/dL AST 25 (14-36) U/L ALT 15 (0-35) U/L Alkaline Phosphatase 91 (38-126) U/L Troponin I < 0.012 (0.000-0.034) ng/mL NT-Pro-B Natriuret Pep 71.0 (0-900) pg/mL Serum Total Protein 7.4 (6.3-8.2) g/dL Albumin 4.4 (3.5-5.0) g/dL Influenza Type A Ag (NEGATIVE) Influenza Type B Ag (NEGATIVE) RSV (PCR) (Negative) SARS-CoV-2 (PCR) (NEGATIVE) 08/12/21 08/12/21 08/12/21 Range/Units 15:57 17:00 20:14 WBC (4.0-10.5) K/mm3 RBC (4.1-5.4) M/mm3 Hgb (12.0-16.0) gm/dl Hct (35-47) % MCV (78-100) fl MCH (26-32) pg MCHC (32-36) g/dl RDW (11.5-14.0) % Plt Count (150-450) K/mm3 MPV (7.5-11.0) fl Gran % (36.0-66.0) % Eos # (Auto) (0-0.5) Absolute Lymphs (auto) (1.0-4.6) Absolute Monos (auto) (0.0-1.3) Lymphocytes % (24.0-44.0) % Monocytes % (0.0-12.0) % Eosinophils % (0.00-5.0) % Basophils % (0.0-0.4) % Absolute Granulocytes (1.4-6.9) Basophils # (0-0.4) Sodium (137-145) mmol/L Potassium (3.5-5.1) mmol/L Chloride (98-107) mmol/L Carbon Dioxide (22-30) mmol/L Anion Gap (5-15) MEQ/L BUN (7-17) mg/dL Creatinine (0.52-1.04) mg/dL Estimated GFR ML/MIN Glucose (74-106) mg/dL Calcium (8.4-10.2) mg/dL Total Bilirubin (0.2-1.3) mg/dL AST (14-36) U/L ALT (0-35) U/L Alkaline Phosphatase (38-126) U/L Troponin I < 0.012 < 0.012 (0.000-0.034) ng/mL NT-Pro-B Natriuret Pep (0-900) pg/mL Serum Total Protein (6.3-8.2) g/dL Albumin (3.5-5.0) g/dL Influenza Type A Ag NEGATIVE (NEGATIVE) Influenza Type B Ag NEGATIVE (NEGATIVE) RSV (PCR) NEGATIVE (Negative) SARS-CoV-2 (PCR) NEGATIVE (NEGATIVE) 08/12/21 08/13/21 08/13/21 Range/Units 23:52 03:18 03:18 WBC 6.0 (4.0-10.5) K/mm3 RBC 4.70 (4.1-5.4) M/mm3 Hgb 13.6 (12.0-16.0) gm/dl Hct 41.4 (35-47) % MCV 88.1 (78-100) fl MCH 28.9 (26-32) pg MCHC 32.9 (32-36) g/dl RDW 15.1 H (11.5-14.0) % Plt Count 213 (150-450) K/mm3 MPV 10.5 (7.5-11.0) fl Gran % 37.7 (36.0-66.0) % Eos # (Auto) 0.25 (0-0.5) Absolute Lymphs (auto) 2.93 (1.0-4.6) Absolute Monos (auto) 0.50 (0.0-1.3) Lymphocytes % 49.2 H (24.0-44.0) % Monocytes % 8.4 (0.0-12.0) % Eosinophils % 4.2 (0.00-5.0) % Basophils % 0.5 (0.0-0.4) % Absolute Granulocytes 2.24 (1.4-6.9) Basophils # 0.03 (0-0.4) Sodium (137-145) mmol/L Potassium (3.5-5.1) mmol/L Chloride (98-107) mmol/L Carbon Dioxide (22-30) mmol/L Anion Gap (5-15) MEQ/L BUN (7-17) mg/dL Creatinine (0.52-1.04) mg/dL Estimated GFR ML/MIN Glucose (74-106) mg/dL Calcium (8.4-10.2) mg/dL Total Bilirubin (0.2-1.3) mg/dL AST (14-36) U/L ALT (0-35) U/L Alkaline Phosphatase (38-126) U/L Troponin I < 0.012 < 0.012 (0.000-0.034) ng/mL NT-Pro-B Natriuret Pep (0-900) pg/mL Serum Total Protein (6.3-8.2) g/dL Albumin (3.5-5.0) g/dL Influenza Type A Ag (NEGATIVE) Influenza Type B Ag (NEGATIVE) RSV (PCR) (Negative) SARS-CoV-2 (PCR) (NEGATIVE) 08/13/21 Range/Units 03:18 WBC (4.0-10.5) K/mm3 RBC (4.1-5.4) M/mm3 Hgb (12.0-16.0) gm/dl Hct (35-47) % MCV (78-100) fl MCH (26-32) pg MCHC (32-36) g/dl RDW (11.5-14.0) % Plt Count (150-450) K/mm3 MPV (7.5-11.0) fl Gran % (36.0-66.0) % Eos # (Auto) (0-0.5) Absolute Lymphs (auto) (1.0-4.6) Absolute Monos (auto) (0.0-1.3) Lymphocytes % (24.0-44.0) % Monocytes % (0.0-12.0) % Eosinophils % (0.00-5.0) % Basophils % (0.0-0.4) % Absolute Granulocytes (1.4-6.9) Basophils # (0-0.4) Sodium 138 (137-145) mmol/L Potassium 4.4 (3.5-5.1) mmol/L Chloride 105 (98-107) mmol/L Carbon Dioxide 27 (22-30) mmol/L Anion Gap 10.8 (5-15) MEQ/L BUN 12 (7-17) mg/dL Creatinine 0.71 (0.52-1.04) mg/dL Estimated GFR > 60.0 ML/MIN Glucose 95 (74-106) mg/dL Calcium 9.1 (8.4-10.2) mg/dL Total Bilirubin 0.50 (0.2-1.3) mg/dL AST 18 (14-36) U/L ALT 13 (0-35) U/L Alkaline Phosphatase 81 (38-126) U/L Troponin I (0.000-0.034) ng/mL NT-Pro-B Natriuret Pep (0-900) pg/mL Serum Total Protein 6.7 (6.3-8.2) g/dL Albumin 3.8 (3.5-5.0) g/dL Influenza Type A Ag (NEGATIVE) Influenza Type B Ag (NEGATIVE) RSV (PCR) (Negative) SARS-CoV-2 (PCR) (NEGATIVE) - Radiology Impressions Radiology Exams & Impressions: Radiology Procedures Category Date Time Status CHEST 1 VIEW (PORTABLE) Stat Exams 08/12/21 13:52 Completed - Other Procedures and Tests Respiratory Therapy 08/12/21 18:38 Smoking Cessation Education ONCE 08/12/21 19:15 Respiratory Therapy Assessment DAILY Assessment/Plan (1) Chest pain, rule out acute myocardial infarction Current Visit: Yes Status: Acute Assessment & Plan: Chief Complaint Diagnosis Chest pain rule out acute MA Allergies Allergy/AdvReac Type Severity Reaction Status Date / Time promethazine HCl Allergy Severe Lightheaded Verified 08/12/21 15:04 [From Phenergan] ness hydromorphone HCl AdvReac Severe Vomiting Verified 08/12/21 15:04 [From Dilaudid] morphine AdvReac Severe Vomiting Verified 08/12/21 15:04 Vital Signs (Last 24 hours) Temp Pulse Pulse Resp BP Pulse Ox 08/13/21 12:00 98.2 F 66 16 125/56 96 08/13/21 07:39 97.5 F 87 16 147/60 93 L 08/13/21 03:47 97.1 F 71 18 113/57 95 08/12/21 23:53 98.2 F 60 16 129/67 96 08/12/21 20:00 97.7 F 66 21 174/74 97 08/12/21 19:16 68 20 95 08/12/21 18:19 97.7 F 66 21 174/74 97 08/12/21 17:00 60 16 178/92 98 08/12/21 16:00 59 L 14 170/73 99 08/12/21 15:57 97 08/12/21 15:04 62 16 182/79 98 08/12/21 14:27 63 16 124/94 98 08/12/21 14:25 63 08/12/21 13:25 97.0 F 69 16 163/92 97 Home Medications Medication Instructions Recorded Confirmed Last Taken Type ALPRAZolam [Alprazolam] 0.5 mg PO TID PRN 08/12/21 08/12/21 08/11/21 History ARIPiprazole [Aripiprazole] 5 mg PO HS 08/12/21 08/13/21 08/11/21 History Famotidine 20 mg [Pepcid 20 20 mg PO BID 08/12/21 08/12/21 08/11/21 History MG] PANTOPRAZOLE 40 mg Tablet 40 mg PO QAM 08/12/21 08/12/21 08/11/21 History [Protonix 40MG Tablet] Current Medications Generic Name Dose Route Start Last Admin Trade Name Freq PRN Reason Stop Dose Admin Acetaminophen 650 mg 08/12/21 18:09 Acetaminophen 325 Mg Tablet PO 09/11/21 18:08 Q4H PRN PRN PAIN AND/OR FEVER Alprazolam 0.5 mg 08/12/21 19:41 08/12/21 21:23 Alprazolam 0.5 Mg Tablet PO 09/11/21 19:40 0.5 mg TID PRN PRN Administration ANXIETY Aripiprazole 5 mg 08/13/21 10:00 08/13/21 08:19 Aripiprazole 10 Mg Tablet PO 09/12/21 09:59 Not Given DAILY BRANDON Carvedilol 6.25 mg 08/12/21 22:00 08/13/21 09:46 Carvedilol 6.25 Mg Tablet PO 09/11/21 21:59 6.25 mg BID BRANDON Administration Duloxetine HCl 60 mg 08/13/21 10:00 08/13/21 09:46 Duloxetine Hcl 30 Mg Cap PO 09/12/21 09:59 60 mg DAILY BRANDON Administration Famotidine 20 mg 08/12/21 22:00 08/13/21 09:43 Famotidine 20 Mg Tablet PO 09/11/21 21:59 20 mg BID BRANDON Administration Ondansetron HCl 4 mg 08/12/21 18:09 Ondansetron Hcl 4 Mg/2 Ml Vial IV 09/11/21 18:08 Q6H PRN PRN NAUSEA/VOMITING Pantoprazole Sodium 40 mg 08/13/21 10:00 08/13/21 09:44 Protonix (Pantoprazole) 40 Mg Tablet PO 09/12/21 09:59 40 mg QAM BRANDON Administration Simvastatin 20 mg 08/13/21 10:00 08/13/21 09:50 Simvastatin 20 Mg Tablet PO 09/12/21 09:59 Not Given DAILY BRANDON Discontinued Medications Generic Name Dose Route Start Last Admin Trade Name Freq PRN Reason Stop Dose Admin Albuterol/Ipratropium 3 ml 08/12/21 19:00 08/12/21 19:19 Ipratropium/Albuterol Sulfate 3 Ml Ampul.Neb IH 09/11/21 18:59 Not Given QIDRT BRANODN Aripiprazole 5 mg 08/13/21 22:00 Aripiprazole 10 Mg Tablet PO 08/13/21 22:01 ONCE ONE Aripiprazole Confirm 08/12/21 21:21 Aripiprazole 10 Mg Tablet Administered 08/12/21 21:22 Dose 50 mg .ROUTE .STK-MED ONE Aripiprazole 5 mg 08/12/21 22:00 08/12/21 21:26 Aripiprazole 10 Mg Tablet PO 08/12/21 22:01 5 mg ONCE ONE Administration Aspirin 324 mg 08/12/21 13:52 08/12/21 13:58 Aspirin 81 Mg Tab.Chew PO 08/12/21 13:53 324 mg STAT ONE Administration Pantoprazole Sodium 40 mg 08/13/21 10:00 Pantoprazole 40 Mg Vial IV 09/12/21 09:59 Q24H10 BRANDON Intake & Output (Last 24 hours) 08/11/21 08/12/21 08/13/21 08/14/21 11:59 11:59 11:59 11:59 Intake Total 1180 Balance 1180 Weight 93.7 kg Laboratory Results (Last 24 hours) 08/13/21 08/13/21 08/13/21 03:18 03:18 03:18 WBC 6.0 RBC 4.70 Hgb 13.6 Hct 41.4 MCV 88.1 MCH 28.9 MCHC 32.9 RDW 15.1 H Plt Count 213 MPV 10.5 Gran % 37.7 Eos # (Auto) 0.25 Absolute Lymphs (auto) 2.93 Absolute Monos (auto) 0.50 Lymphocytes % 49.2 H Monocytes % 8.4 Eosinophils % 4.2 Basophils % 0.5 Absolute Granulocytes 2.24 Basophils # 0.03 Sodium 138 Potassium 4.4 Chloride 105 Carbon Dioxide 27 Anion Gap 10.8 BUN 12 Creatinine 0.71 Estimated GFR > 60.0 Glucose 95 Calcium 9.1 Total Bilirubin 0.50 AST 18 ALT 13 Alkaline Phosphatase 81 Troponin I < 0.012 NT-Pro-B Natriuret Pep Serum Total Protein 6.7 Albumin 3.8 Influenza Type A Ag Influenza Type B Ag RSV (PCR) SARS-CoV-2 (PCR) 08/12/21 08/12/21 08/12/21 23:52 20:14 17:00 WBC RBC Hgb Hct MCV MCH MCHC RDW Plt Count MPV Gran % Eos # (Auto) Absolute Lymphs (auto) Absolute Monos (auto) Lymphocytes % Monocytes % Eosinophils % Basophils % Absolute Granulocytes Basophils # Sodium Potassium Chloride Carbon Dioxide Anion Gap BUN Creatinine Estimated GFR Glucose Calcium Total Bilirubin AST ALT Alkaline Phosphatase Troponin I < 0.012 < 0.012 < 0.012 NT-Pro-B Natriuret Pep Serum Total Protein Albumin Influenza Type A Ag Influenza Type B Ag RSV (PCR) SARS-CoV-2 (PCR) 08/12/21 08/12/21 08/12/21 15:57 14:00 14:00 WBC RBC Hgb Hct MCV MCH MCHC RDW Plt Count MPV Gran % Eos # (Auto) Absolute Lymphs (auto) Absolute Monos (auto) Lymphocytes % Monocytes % Eosinophils % Basophils % Absolute Granulocytes Basophils # Sodium 138 Potassium 5.0 Chloride 103 Carbon Dioxide 26 Anion Gap 13.4 BUN 11 Creatinine 0.55 Estimated GFR > 60.0 Glucose 95 Calcium 9.6 Total Bilirubin 0.80 AST 25 ALT 15 Alkaline Phosphatase 91 Troponin I < 0.012 NT-Pro-B Natriuret Pep 71.0 Serum Total Protein 7.4 Albumin 4.4 Influenza Type A Ag NEGATIVE Influenza Type B Ag NEGATIVE RSV (PCR) NEGATIVE SARS-CoV-2 (PCR) NEGATIVE 08/12/21 14:00 WBC 5.7 RBC 4.98 Hgb 14.3 Hct 43.5 MCV 87.3 MCH 28.7 MCHC 32.9 RDW 15.3 H Plt Count 232 MPV 10.8 Gran % 47.1 Eos # (Auto) 0.21 Absolute Lymphs (auto) 2.39 Absolute Monos (auto) 0.38 Lymphocytes % 42.0 Monocytes % 6.7 Eosinophils % 3.7 Basophils % 0.5 Absolute Granulocytes 2.68 Basophils # 0.03 Sodium Potassium Chloride Carbon Dioxide Anion Gap BUN Creatinine Estimated GFR Glucose Calcium Total Bilirubin AST ALT Alkaline Phosphatase Troponin I NT-Pro-B Natriuret Pep Serum Total Protein Albumin Influenza Type A Ag Influenza Type B Ag RSV (PCR) SARS-CoV-2 (PCR) Orders (Last 24 hours) Category Date Time Status Bedrest ROUTINE Activity 08/12/21 18:09 Active Up With Assistance ROUTINE Activity 08/12/21 18:09 Active Secretarial Teacher STAT Care 08/12/21 13:52 Completed Code Status Order ROUTINE Care 08/12/21 18:09 Active EKG-ER Only STAT Care 08/12/21 13:52 Completed Fall Protocol Q1H Care 08/12/21 18:09 Active IV Care Q6H Care 08/12/21 18:09 Active IV Insertion STAT Care 08/12/21 13:[address] in Observation ROUTINE Care 08/12/21 18:09 Active Isis Will ROUTINE Care 08/12/21 18:09 Active Telemetry q6h Care 08/12/21 18:08 Active Weight,Daily 0600 Care 08/12/21 18:09 Active CHEST 1 VIEW (PORTABLE) Stat Exams 08/12/21 13:52 Completed CBC W DIFF AM.LAB Lab 08/13/21 03:18 Completed CBC W DIFF Stat Lab 08/12/21 14:00 Completed CMP AM.LAB Lab 08/13/21 03:18 Completed CMP Stat Lab 08/12/21 14:00 Completed COVID/FLU/RSV Panel Routine Lab 08/12/21 15:57 Completed NT PRO BNP Stat Lab 08/12/21 14:00 Completed TROPONIN Q3H Lab 08/12/21 14:00 Completed TROPONIN Q3H Lab 08/12/21 17:00 Completed TROPONIN Q3H Lab 08/12/21 20:14 Completed TROPONIN Q3H Lab 08/12/21 23:52 Completed TROPONIN Q3H Lab 08/13/21 03:18 Completed ALPRAZolam 0.5 MG [xanAX 0.5 MG] Med 08/12/21 19:41 Active 0.5 mg PO TID PRN PRN Acetaminophen 325 mg [Tylenol 325 mg] Med 08/12/21 18:09 Active 650 mg PO Q4H PRN PRN Albuterol/Ipratropium 3ml Neb* [DUONEB 0.5-3 MG/3 ml Med 08/12/21 19:00 Discontinued Neb] 3 ml IH QIDRT Aripiprazole 10 mg [Abilify 10 MG] Med 08/13/21 10:00 Active 5 mg PO DAILY Aripiprazole 10 mg [Abilify 10 MG] Med 08/12/21 22:00 Discontinued 5 mg PO ONCE ONE Aripiprazole 10 mg [Abilify 10 MG] Med 08/13/21 22:00 Discontinued 5 mg PO ONCE ONE Aripiprazole 10 mg [Abilify 10 MG] Med 08/12/21 21:21 Discontinued 50 mg .ROUTE .STK-MED ONE Aspirin 81 gm Chew [Baby Aspirin 81 mg Chew] Med 08/12/21 13:52 Discontinued 324 mg PO STAT ONE Carvedilol 6.25 mg [Coreg 6.25 MG] Med 08/12/21 22:00 Active 6.25 mg PO BID Duloxetine HCl 30 mg [Cymbalta 30 MG Capsule] Med 08/13/21 10:00 Active 60 mg PO DAILY Famotidine 20 mg [Pepcid 20 MG] Med 08/12/21 22:00 Active 20 mg PO BID Ondansetron HCl 4 mg/2 ml [Zofran 4 MG/2 ML VIAL] Med 08/12/21 18:09 Active 4 mg IV Q6H PRN PRN PANTOPRAZOLE 40 mg Tablet [Protonix 40MG Tablet] Med 08/13/21 10:00 Active 40 mg PO QAM Pantoprazole 40 mg [Protonix 40 mg IV] Med 08/13/21 10:00 Discontinued 40 mg IV Q24H10 Simvastatin 20Mg [Zocor 20Mg] Med 08/13/21 10:00 Active 20 mg PO DAILY Pulse Oximetry .spot check RT 08/12/21 19:15 Active RT Screen per Nursing Assess ONCE RT 08/12/21 18:38 Completed Respiratory Therapy Assessment DAILY RT 08/12/21 19:15 Active Smoking Cessation Education ONCE RT 08/12/21 18:38 Active Patient Care Notes (Last 24 hours) 08/12/21 19:40 Nursing Note by Sander Orozco CALLED DR BOSTON FOR HOME MEDS, HE CONTINUED ALL HOME MEDS Initialized on 08/12/21 19:40 - END OF NOTE 08/12/21 18:23 Nursing Note by Cathleen Amaro PATIENT BROUGHT PRESCRIPTION MEDICATIONS IN WITH HER. VERIFIED MEDICATIONS WITH PRESCRIPTION BOTTLES AND PHARMACY Initialized on 08/12/21 18:23 - END OF NOTE Code(s): R07.9 - CHEST PAIN, UNSPECIFIED (2) Smoking Current Visit: Yes Status: Acute Code(s): F17.200 - NICOTINE DEPENDENCE, UNSPECIFIED, UNCOMPLICATED (3) HTN (hypertension) Current Visit: No Status: Chronic Qualifiers: Hypertension type: essential hypertension Qualified Code(s): I10 - Essential (primary) hypertension Code(s): I10 - ESSENTIAL (PRIMARY) HYPERTENSION Hospital Summary - Hospital Course Hospital Course: Chief Complaint Diagnosis Chest pain rule out acute MA Allergies Allergy/AdvReac Type Severity Reaction Status Date / Time promethazine HCl Allergy Severe Lightheaded Verified 08/12/21 15:04 [From Phenergan] ness hydromorphone HCl AdvReac Severe Vomiting Verified 08/12/21 15:04 [From Dilaudid] morphine AdvReac Severe Vomiting Verified 08/12/21 15:04 Vital Signs (Last 24 hours) Temp Pulse Pulse Resp BP Pulse Ox 08/13/21 12:00 98.2 F 66 16 125/56 96 08/13/21 07:39 97.5 F 87 16 147/60 93 L 08/13/21 03:47 97.1 F 71 18 113/57 95 08/12/21 23:53 98.2 F 60 16 129/67 96 08/12/21 20:00 97.7 F 66 21 174/74 97 08/12/21 19:16 68 20 95 08/12/21 18:19 97.7 F 66 21 174/74 97 08/12/21 17:00 60 16 178/92 98 08/12/21 16:00 59 L 14 170/73 99 08/12/21 15:57 97 08/12/21 15:04 62 16 182/79 98 08/12/21 14:27 63 16 124/94 98 08/12/21 14:25 63 08/12/21 13:25 97.0 F 69 16 163/92 97 Home Medications Medication Instructions Recorded Confirmed Last Taken Type ALPRAZolam [Alprazolam] 0.5 mg PO TID PRN 08/12/21 08/12/21 08/11/21 History ARIPiprazole [Aripiprazole] 5 mg PO HS 08/12/21 08/13/21 08/11/21 History Famotidine 20 mg [Pepcid 20 20 mg PO BID 08/12/21 08/12/21 08/11/21 History MG] PANTOPRAZOLE 40 mg Tablet 40 mg PO QAM 08/12/21 08/12/21 08/11/21 History [Protonix 40MG Tablet] Current Medications Generic Name Dose Route Start Last Admin Trade Name Freq PRN Reason Stop Dose Admin Acetaminophen 650 mg 08/12/21 18:09 Acetaminophen 325 Mg Tablet PO 09/11/21 18:08 Q4H PRN PRN PAIN AND/OR FEVER Alprazolam 0.5 mg 08/12/21 19:41 08/12/21 21:23 Alprazolam 0.5 Mg Tablet PO 09/11/21 19:40 0.5 mg TID PRN PRN Administration ANXIETY Aripiprazole 5 mg 08/13/21 10:00 08/13/21 08:19 Aripiprazole 10 Mg Tablet PO 09/12/21 09:59 Not Given DAILY BRANDON Carvedilol 6.25 mg 08/12/21 22:00 08/13/21 09:46 Carvedilol 6.25 Mg Tablet PO 09/11/21 21:59 6.25 mg BID BRANDON Administration Duloxetine HCl 60 mg 08/13/21 10:00 08/13/21 09:46 Duloxetine Hcl 30 Mg Cap PO 09/12/21 09:59 60 mg DAILY BRANDON Administration Famotidine 20 mg 08/12/21 22:00 08/13/21 09:43 Famotidine 20 Mg Tablet PO 09/11/21 21:59 20 mg BID BRANDON Administration Ondansetron HCl 4 mg 08/12/21 18:09 Ondansetron Hcl 4 Mg/2 Ml Vial IV 09/11/21 18:08 Q6H PRN PRN NAUSEA/VOMITING Pantoprazole Sodium 40 mg 08/13/21 10:00 08/13/21 09:44 Protonix (Pantoprazole) 40 Mg Tablet PO 09/12/21 09:59 40 mg QAM BRANDON Administration Simvastatin 20 mg 08/13/21 10:00 08/13/21 09:50 Simvastatin 20 Mg Tablet PO 09/12/21 09:59 Not Given DAILY BRANDON Discontinued Medications Generic Name Dose Route Start Last Admin Trade Name Ginny PRN Reason Stop Dose Admin Albuterol/Ipratropium 3 ml 08/12/21 19:00 08/12/21 19:19 Ipratropium/Albuterol Sulfate 3 Ml Ampul.Neb IH 09/11/21 18:59 Not Given QIDRT BRANDON Aripiprazole 5 mg 08/13/21 22:00 Aripiprazole 10 Mg Tablet PO 08/13/21 22:01 ONCE ONE Aripiprazole Confirm 08/12/21 21:21 Aripiprazole 10 Mg Tablet Administered 08/12/21 21:22 Dose 50 mg .ROUTE .STK-MED ONE Aripiprazole 5 mg 08/12/21 22:00 08/12/21 21:26 Aripiprazole 10 Mg Tablet PO 08/12/21 22:01 5 mg ONCE ONE Administration Aspirin 324 mg 08/12/21 13:52 08/12/21 13:58 Aspirin 81 Mg Tab.Chew PO 08/12/21 13:53 324 mg STAT ONE Administration Pantoprazole Sodium 40 mg 08/13/21 10:00 Pantoprazole 40 Mg Vial IV 09/12/21 09:59 [id number] BRANDON Intake & Output (Last 24 hours) 08/11/21 08/12/21 08/13/21 08/14/21 11:59 11:59 11:59 11:59 Intake Total 1180 Balance 1180 Weight 93.7 kg Laboratory Results (Last 24 hours) 08/13/21 08/13/21 08/13/21 03:18 03:18 03:18 WBC 6.0 RBC 4.70 Hgb 13.6 Hct 41.4 MCV 88.1 MCH 28.9 MCHC 32.9 RDW 15.1 H Plt Count 213 MPV 10.5 Gran % 37.7 Eos # (Auto) 0.25 Absolute Lymphs (auto) 2.93 Absolute Monos (auto) 0.50 Lymphocytes % 49.2 H Monocytes % 8.4 Eosinophils % 4.2 Basophils % 0.5 Absolute Granulocytes 2.24 Basophils # 0.03 Sodium 138 Potassium 4.4 Chloride 105 Carbon Dioxide 27 Anion Gap 10.8 BUN 12 Creatinine 0.71 Estimated GFR > 60.0 Glucose 95 Calcium 9.1 Total Bilirubin 0.50 AST 18 ALT 13 Alkaline Phosphatase 81 Troponin I < 0.012 NT-Pro-B Natriuret Pep Serum Total Protein 6.7 Albumin 3.8 Influenza Type A Ag Influenza Type B Ag RSV (PCR) SARS-CoV-2 (PCR) 08/12/21 08/12/21 08/12/21 23:52 20:14 17:00 WBC RBC Hgb Hct MCV MCH MCHC RDW Plt Count MPV Gran % Eos # (Auto) Absolute Lymphs (auto) Absolute Monos (auto) Lymphocytes % Monocytes % Eosinophils % Basophils % Absolute Granulocytes Basophils # Sodium Potassium Chloride Carbon Dioxide Anion Gap BUN Creatinine Estimated GFR Glucose Calcium Total Bilirubin AST ALT Alkaline Phosphatase Troponin I < 0.012 < 0.012 < 0.012 NT-Pro-B Natriuret Pep Serum Total Protein Albumin Influenza Type A Ag Influenza Type B Ag RSV (PCR) SARS-CoV-2 (PCR) 08/12/21 08/12/21 08/12/21 15:57 14:00 14:00 WBC RBC Hgb Hct MCV MCH MCHC RDW Plt Count MPV Gran % Eos # (Auto) Absolute Lymphs (auto) Absolute Monos (auto) Lymphocytes % Monocytes % Eosinophils % Basophils % Absolute Granulocytes Basophils # Sodium 138 Potassium 5.0 Chloride 103 Carbon Dioxide 26 Anion Gap 13.4 BUN 11 Creatinine 0.55 Estimated GFR > 60.0 Glucose 95 Calcium 9.6 Total Bilirubin 0.80 AST 25 ALT 15 Alkaline Phosphatase 91 Troponin I < 0.012 NT-Pro-B Natriuret Pep 71.0 Serum Total Protein 7.4 Albumin 4.4 Influenza Type A Ag NEGATIVE Influenza Type B Ag NEGATIVE RSV (PCR) NEGATIVE SARS-CoV-2 (PCR) NEGATIVE 08/12/21 14:00 WBC 5.7 RBC 4.98 Hgb 14.3 Hct 43.5 MCV 87.3 MCH 28.7 MCHC 32.9 RDW 15.3 H Plt Count 232 MPV 10.8 Gran % 47.1 Eos # (Auto) 0.21 Absolute Lymphs (auto) 2.39 Absolute Monos (auto) 0.38 Lymphocytes % 42.0 Monocytes % 6.7 Eosinophils % 3.7 Basophils % 0.5 Absolute Granulocytes 2.68 Basophils # 0.03 Sodium Potassium Chloride Carbon Dioxide Anion Gap BUN Creatinine Estimated GFR Glucose Calcium Total Bilirubin AST ALT Alkaline Phosphatase Troponin I NT-Pro-B Natriuret Pep Serum Total Protein Albumin Influenza Type A Ag Influenza Type B Ag RSV (PCR) SARS-CoV-2 (PCR) Orders (Last 24 hours) Category Date Time Status Bedrest ROUTINE Activity 08/12/21 18:09 Active Up With Assistance ROUTINE Activity 08/12/21 18:09 Active Secretarial Teacher STAT Care 08/12/21 13:52 Completed Code Status Order ROUTINE Care 08/12/21 18:09 Active EKG-ER Only STAT Care 08/12/21 13:52 Completed Fall Protocol Q1H Care 08/12/21 18:09 Active IV Care Q6H Care 08/12/21 18:09 Active IV Insertion STAT Care 08/12/21 13:[address] in Observation ROUTINE Care 08/12/21 18:09 Active [employer] [facility] ROUTINE Care 08/12/21 18:09 Active Telemetry q6h Care 08/12/21 18:08 Active Weight,Daily 0600 Care 08/12/21 18:09 Active CHEST 1 VIEW (PORTABLE) Stat Exams 08/12/21 13:52 Completed CBC W DIFF AM.LAB Lab 08/13/21 03:18 Completed CBC W DIFF Stat Lab 08/12/21 14:00 Completed CMP AM.LAB Lab 08/13/21 03:18 Completed CMP Stat Lab 08/12/21 14:00 Completed COVID/FLU/RSV Panel Routine Lab 08/12/21 15:57 Completed NT PRO BNP Stat Lab 08/12/21 14:00 Completed TROPONIN Q3H Lab 08/12/21 14:00 Completed TROPONIN Q3H Lab 08/12/21 17:00 Completed TROPONIN Q3H Lab 08/12/21 20:14 Completed TROPONIN Q3H Lab 08/12/21 23:52 Completed TROPONIN Q3H Lab 08/13/21 03:18 Completed ALPRAZolam 0.5 MG [xanAX 0.5 MG] Med 08/12/21 19:41 Active 0.5 mg PO TID PRN PRN Acetaminophen 325 mg [Tylenol 325 mg] Med 08/12/21 18:09 Active 650 mg PO Q4H PRN PRN Albuterol/Ipratropium 3ml Neb* [DUONEB 0.5-3 MG/3 ml Med 08/12/21 19:00 Discontinued Neb] 3 ml IH QIDRT Aripiprazole 10 mg [Abilify 10 MG] Med 08/13/21 10:00 Active 5 mg PO DAILY Aripiprazole 10 mg [Abilify 10 MG] Med 08/12/21 22:00 Discontinued 5 mg PO ONCE ONE Aripiprazole 10 mg [Abilify 10 MG] Med 08/13/21 22:00 Discontinued 5 mg PO ONCE ONE Aripiprazole 10 mg [Abilify 10 MG] Med 08/12/21 21:21 Discontinued 50 mg .ROUTE .STK-MED ONE Aspirin 81 gm Chew [Baby Aspirin 81 mg Chew] Med 08/12/21 13:52 Discontinued 324 mg PO STAT ONE Carvedilol 6.25 mg [Coreg 6.25 MG] Med 08/12/21 22:00 Active 6.25 mg PO BID Duloxetine HCl 30 mg [Cymbalta 30 MG Capsule] Med 08/13/21 10:00 Active 60 mg PO DAILY Famotidine 20 mg [Pepcid 20 MG] Med 08/12/21 22:00 Active 20 mg PO BID Ondansetron HCl 4 mg/2 ml [Zofran 4 MG/2 ML VIAL] Med 08/12/21 18:09 Active 4 mg IV Q6H PRN PRN PANTOPRAZOLE 40 mg Tablet [Protonix 40MG Tablet] Med 08/13/21 10:00 Active 40 mg PO QAM Pantoprazole 40 mg [Protonix 40 mg IV] Med 08/13/21 10:00 Discontinued 40 mg IV Q24H10 Simvastatin 20Mg [Zocor 20Mg] Med 08/13/21 10:00 Active 20 mg PO DAILY Pulse Oximetry .spot check RT 08/12/21 19:15 Active RT Screen per Nursing Assess ONCE RT 08/12/21 18:38 Completed Respiratory Therapy Assessment DAILY RT 08/12/21 19:15 Active Smoking Cessation Education ONCE RT 08/12/21 18:38 Active Patient Care Notes (Last 24 hours) 08/12/21 19:40 Nursing Note by Sander Orozco CALLED DR BOSTON FOR HOME MEDS, HE CONTINUED ALL HOME MEDS Initialized on 08/12/21 19:40 - END OF NOTE 08/12/21 18:23 Nursing Note by Cathleen Amaro PATIENT BROUGHT PRESCRIPTION MEDICATIONS IN WITH HER. VERIFIED MEDICATIONS WITH PRESCRIPTION BOTTLES AND PHARMACY Initialized on 08/12/21 18:23 - END OF NOTE - Vitals & Intake/Output Vital Signs: Vital Signs Temperature 98.2 F 08/13/21 12:00 Pulse Rate 66 08/13/21 12:00 Respiratory Rate 16 08/13/21 12:00 Blood Pressure 125/56 08/13/21 12:00 O2 Sat by Pulse Oximetry 96 08/13/21 12:00 Intake & Output: Intake & Output 08/11/21 08/12/21 08/13/21 08/14/21 11:59 11:59 11:59 11:59 Intake Total 1180 Balance 1180 Weight 93.7 kg - Lab Result Diagrams: 08/13/21 03:18 08/13/21 03:18 Lab Results-Last 24 Hrs: Lab Results-Last 24 Hours 08/12/21 08/12/21 08/12/21 Range/Units 14:00 14:00 14:00 WBC 5.7 (4.0-10.5) K/mm3 RBC 4.98 (4.1-5.4) M/mm3 Hgb 14.3 (12.0-16.0) gm/dl Hct 43.5 (35-47) % MCV 87.3 (78-100) fl MCH 28.7 (26-32) pg MCHC 32.9 (32-36) g/dl RDW 15.3 H (11.5-14.0) % Plt Count 232 (150-450) K/mm3 MPV 10.8 (7.5-11.0) fl Gran % 47.1 (36.0-66.0) % Eos # (Auto) 0.21 (0-0.5) Absolute Lymphs (auto) 2.39 (1.0-4.6) Absolute Monos (auto) 0.38 (0.0-1.3) Lymphocytes % 42.0 (24.0-44.0) % Monocytes % 6.7 (0.0-12.0) % Eosinophils % 3.7 (0.00-5.0) % Basophils % 0.5 (0.0-0.4) % Absolute Granulocytes 2.68 (1.4-6.9) Basophils # 0.03 (0-0.4) Sodium 138 (137-145) mmol/L Potassium 5.0 (3.5-5.1) mmol/L Chloride 103 (98-107) mmol/L Carbon Dioxide 26 (22-30) mmol/L Anion Gap 13.4 (5-15) MEQ/L BUN 11 (7-17) mg/dL Creatinine 0.55 (0.52-1.04) mg/dL Estimated GFR > 60.0 ML/MIN Glucose 95 (74-106) mg/dL Calcium 9.6 (8.4-10.2) mg/dL Total Bilirubin 0.80 (0.2-1.3) mg/dL AST 25 (14-36) U/L ALT 15 (0-35) U/L Alkaline Phosphatase 91 (38-126) U/L Troponin I < 0.012 (0.000-0.034) ng/mL NT-Pro-B Natriuret Pep 71.0 (0-900) pg/mL Serum Total Protein 7.4 (6.3-8.2) g/dL Albumin 4.4 (3.5-5.0) g/dL Influenza Type A Ag (NEGATIVE) Influenza Type B Ag (NEGATIVE) RSV (PCR) (Negative) SARS-CoV-2 (PCR) (NEGATIVE) 08/12/21 08/12/21 08/12/21 Range/Units 15:57 17:00 20:14 WBC (4.0-10.5) K/mm3 RBC (4.1-5.4) M/mm3 Hgb (12.0-16.0) gm/dl Hct (35-47) % MCV (78-100) fl MCH (26-32) pg MCHC (32-36) g/dl RDW (11.5-14.0) % Plt Count (150-450) K/mm3 MPV (7.5-11.0) fl Gran % (36.0-66.0) % Eos # (Auto) (0-0.5) Absolute Lymphs (auto) (1.0-4.6) Absolute Monos (auto) (0.0-1.3) Lymphocytes % (24.0-44.0) % Monocytes % (0.0-12.0) % Eosinophils % (0.00-5.0) % Basophils % (0.0-0.4) % Absolute Granulocytes (1.4-6.9) Basophils # (0-0.4) Sodium (137-145) mmol/L Potassium (3.5-5.1) mmol/L Chloride (98-107) mmol/L Carbon Dioxide (22-30) mmol/L Anion Gap (5-15) MEQ/L BUN (7-17) mg/dL Creatinine (0.52-1.04) mg/dL Estimated GFR ML/MIN Glucose (74-106) mg/dL Calcium (8.4-10.2) mg/dL Total Bilirubin (0.2-1.3) mg/dL AST (14-36) U/L ALT (0-35) U/L Alkaline Phosphatase (38-126) U/L Troponin I < 0.012 < 0.012 (0.000-0.034) ng/mL NT-Pro-B Natriuret Pep (0-900) pg/mL Serum Total Protein (6.3-8.2) g/dL Albumin (3.5-5.0) g/dL Influenza Type A Ag NEGATIVE (NEGATIVE) Influenza Type B Ag NEGATIVE (NEGATIVE) RSV (PCR) NEGATIVE (Negative) SARS-CoV-2 (PCR) NEGATIVE (NEGATIVE) 08/12/21 08/13/21 08/13/21 Range/Units 23:52 03:18 03:18 WBC 6.0 (4.0-10.5) K/mm3 RBC 4.70 (4.1-5.4) M/mm3 Hgb 13.6 (12.0-16.0) gm/dl Hct 41.4 (35-47) % MCV 88.1 (78-100) fl MCH 28.9 (26-32) pg MCHC 32.9 (32-36) g/dl RDW 15.1 H (11.5-14.0) % Plt Count 213 (150-450) K/mm3 MPV 10.5 (7.5-11.0) fl Gran % 37.7 (36.0-66.0) % Eos # (Auto) 0.25 (0-0.5) Absolute Lymphs (auto) 2.93 (1.0-4.6) Absolute Monos (auto) 0.50 (0.0-1.3) Lymphocytes % 49.2 H (24.0-44.0) % Monocytes % 8.4 (0.0-12.0) % Eosinophils % 4.2 (0.00-5.0) % Basophils % 0.5 (0.0-0.4) % Absolute Granulocytes 2.24 (1.4-6.9) Basophils # 0.03 (0-0.4) Sodium (137-145) mmol/L Potassium (3.5-5.1) mmol/L Chloride (98-107) mmol/L Carbon Dioxide (22-30) mmol/L Anion Gap (5-15) MEQ/L BUN (7-17) mg/dL Creatinine (0.52-1.04) mg/dL Estimated GFR ML/MIN Glucose (74-106) mg/dL Calcium (8.4-10.2) mg/dL Total Bilirubin (0.2-1.3) mg/dL AST (14-36) U/L ALT (0-35) U/L Alkaline Phosphatase (38-126) U/L Troponin I < 0.012 < 0.012 (0.000-0.034) ng/mL NT-Pro-B Natriuret Pep (0-900) pg/mL Serum Total Protein (6.3-8.2) g/dL Albumin (3.5-5.0) g/dL Influenza Type A Ag (NEGATIVE) Influenza Type B Ag (NEGATIVE) RSV (PCR) (Negative) SARS-CoV-2 (PCR) (NEGATIVE) 08/13/21 Range/Units 03:18 WBC (4.0-10.5) K/mm3 RBC (4.1-5.4) M/mm3 Hgb (12.0-16.0) gm/dl Hct (35-47) % MCV (78-100) fl MCH (26-32) pg MCHC (32-36) g/dl RDW (11.5-14.0) % Plt Count (150-450) K/mm3 MPV (7.5-11.0) fl Gran % (36.0-66.0) % Eos # (Auto) (0-0.5) Absolute Lymphs (auto) (1.0-4.6) Absolute Monos (auto) (0.0-1.3) Lymphocytes % (24.0-44.0) % Monocytes % (0.0-12.0) % Eosinophils % (0.00-5.0) % Basophils % (0.0-0.4) % Absolute Granulocytes (1.4-6.9) Basophils # (0-0.4) Sodium 138 (137-145) mmol/L Potassium 4.4 (3.5-5.1) mmol/L Chloride 105 (98-107) mmol/L Carbon Dioxide 27 (22-30) mmol/L Anion Gap 10.8 (5-15) MEQ/L BUN 12 (7-17) mg/dL Creatinine 0.71 (0.52-1.04) mg/dL Estimated GFR > 60.0 ML/MIN Glucose 95 (74-106) mg/dL Calcium 9.1 (8.4-10.2) mg/dL Total Bilirubin 0.50 (0.2-1.3) mg/dL AST 18 (14-36) U/L ALT 13 (0-35) U/L Alkaline Phosphatase 81 (38-126) U/L Troponin I (0.000-0.034) ng/mL NT-Pro-B Natriuret Pep (0-900) pg/mL Serum Total Protein 6.7 (6.3-8.2) g/dL Albumin 3.8 (3.5-5.0) g/dL Influenza Type A Ag (NEGATIVE) Influenza Type B Ag (NEGATIVE) RSV (PCR) (Negative) SARS-CoV-2 (PCR) (NEGATIVE) - Radiology Exams Ordered Rad Exams-Entire Visit: Radiology Procedures Category Date Time Status CHEST 1 VIEW (PORTABLE) Stat Exams 08/12/21 13:52 Completed - Procedures and Test Procedures and Tests throughout Hospitalization: Therapy Orders & Screens 08/12/21 18:38 RT Screen per Nursing Assess ONCE Comment: Protocol Order Physician Instructions: Greater than 3 points order RT Admission Screen Reason For Exam: Triggered on Admission Diagnosis: Chest pain rule out acute MA Diagnosis: Chest pain rule out acute MA Pneumonia: No Home O2: No Asthma: Yes CHF: No Home CPAP/BIPAP: No Home Nebs/MDI: Yes Total Points: 9 Smoking Cessation Education ONCE Comment: Diagnosis: Chest pain rule out acute MA Smoking Status: Current every day smoker How long have you smoked: 30 yrs Have you smoked in the past 12 months: Yes Approximately how many cigarettes per day: 1 PPD Do you dip or chew tobacco: No 08/12/21 19:15 Respiratory Therapy Assessment DAILY Comment: Diagnosis: Chest pain rule out acute MA - Discharge Discharge Date: 08/13/21 Disposition: Home, Self-Care Condition: Stable Prescriptions: New Isosorbide Mononitrate 30 mg [Imdur 30 MG] 30 mg PO DAILY #30 tab Continue Carvedilol 6.25 mg [Coreg 6.25 MG] 6.25 mg PO BID Duloxetine HCl [Cymbalta] 60 mg PO DAILY Pravastatin Sodium 20 mg PO DAILY PANTOPRAZOLE 40 mg Tablet [Protonix 40MG Tablet] 40 mg PO QAM Famotidine 20 mg [Pepcid 20 MG] 20 mg PO BID ARIPiprazole [Aripiprazole] 5 mg PO HS ALPRAZolam [Alprazolam] 0.5 mg PO TID PRN PRN Reason: Anxiety Follow up with: SHALONDA RODRIGUEZ MD [CONSULTING PHYSICIAN] - SHAHZAD BOSTON MD [ACTIVE STAFF] -
[2021-08-13] MEDS ORDERED: Abilify 10 MG PO ONE (22:00)
== END 2021-08-13 14:02 | disposition home or self-care (01) ==
LOC: ED 13:21 → MED SURG 18:08
PROVIDERS: ADMIT General Practice; ATTEND General Practice
DX: R07.9 Chest pain, unspecified (principal); I10 Essential (primary) hypertension; R42 Dizziness and giddiness; Z79.899 Other long term (current) drug therapy; F17.200 Nicotine dependence, unspecified, uncomplicated; Z20.828 Contact with and (suspected) exposure to other viral communicable diseases
CPT/HCPCS: 0241U; 36000; 36415; 71045; 80053; 83880; 84484; 85025; 93005; 93041; 94760; 99284; 93268; A9270-GY; G0378